=== PATIENT | female | born 1950 | race African-American/Black ===

== ENCOUNTER 2021-12-15 13:25 | Emergency (ER) | payer MEDICARE ==
[2021-12-15 13:44] VITALS: TEMP 98.9
[2021-12-15 14:13] LABS: Basophils % (A) 1 %; Eosinophils # (A) 0.2 k/uL (0-0.7); Eosinophils % (A) 4 %; HCT 43.6 % (34.0-46.0); HGB 14.1 gm/dL (11.4-16.0); Lymphocytes # (A) 1.5 k/uL (1.0-4.8); Lymphocytes % (A) 33 %; MCH 29.7 pg (25.0-35.0); MCHC 32.4 g/dL (31.0-37.0); MCV 91.7 fL (80.0-100.0); Mean Platelet Volume 7.5; Monocytes # (A) 0.2 k/uL (0-1.0); Monocytes % (A) 5 %; Neutrophils # (A) 2.5 k/uL (1.3-7.7); Neutrophils % (A) 55 %; Platelet Count 263 k/uL (150-450); RBC 4.76 m/uL (3.80-5.40); RDW 14.2 % (11.5-15.5); WBC 4.6 k/uL (3.8-10.6)
[2021-12-15 14:31] LABS: ALT 17 U/L (4-34); AST 31 U/L (14-36); African American GFR (CKD) >90 (>60 ml/min/1.73 sqM); Albumin 4.3 g/dL (3.5-5.0); Alkaline Phosphatase 76 U/L (38-126); Anion Gap 11 mmol/L; Blood Urea Nitrogen 11 mg/dL (7-17); Calcium 9.5 mg/dL (8.4-10.2); Carbon Dioxide 23 mmol/L (22-30); Chloride 105 mmol/L (98-107); Glucose 86 mg/dL (74-99); Non-African American GFR(CKD) >90 (>60 ml/min/1.73 sqM); Potassium 4.4 mmol/L (3.5-5.1); Sodium 139 mmol/L (137-145); Total Bilirubin 0.6 mg/dL (0.2-1.3); Total Protein 7.7 g/dL (6.3-8.2)
[2021-12-15 14:40] LABS: Partial Thromboplastin Time 22.7 sec (22.0-30.0); Prothrombin Time 10.6 sec (9.0-12.0)
[2021-12-15] MEDS ORDERED: MECLIZINE 12.5 MG TAB PO STA (19:07)
--- NOTE | 2021-12-15 19:29 | CT ---
EXAMINATION TYPE: CT brain wo con CT DLP: 1139.4 mGycm, Automated exposure control for dose reduction was used. DATE OF EXAM: 12/15/2021 7:22 PM COMPARISON: None. CLINICAL INDICATION:Female, 71 years old with history of dizzy, forgetfulness, dizziness TECHNIQUE: Brain: Axial CT images of the brain were obtained with coronal and sagittal reformats created and rev iewed. Contrast used: None. Oral contrast used: None. FINDINGS: Brain: Extra-axial spaces: No abnormal extra-axial fluid collections. Ventricular system: Within normal limits Cerebral parenchyma: No acute intraparenchymal hemorrhage or mass effect. The waterman-white junction is well differentiated. Cerebellum: Unremarkable. Mass effect: No evidence of midline shift. Intracranial vasculature: Atherosclerotic calcifications of the intracranial vessels. Soft tissues: Normal. Calvarium/osseous structures: No depressed skull fracture. Paranasal sinuses and mastoid air cells: Mild scattered paranasal sinus disease. Visualized orbits: Orbital contents are intact. IMPRESSION: No acute intracranial process.
[2021-12-15 20:12] VITALS: BP 120/69; PULSE 68; RESP 16
--- NOTE | 2021-12-15 21:23 | ED ---
General Adult HPI - General Chief complaint: Dizziness Stated complaint: dizzy Time Seen by Provider: 12/15/21 18:55 Source: patient Mode of arrival: ambulatory Limitations: no limitations - History of Present Illness Initial comments: 71-year-old female with no reported past history presents emergency room and complaining of dizziness. States it's been going on for the past 3-4 days. Patient has a sensation that the room is spinning when she stands up. No history of vertigo. Denies any head trauma. No headaches or visual changes. Denies any neck pain. No numbness, tingling or weakness in his extremities. Denies any fevers. No history of stroke. No vomiting. Denies any chest pain or shortness of breath. No lightheadedness. No other alleviating, precipitating or modifying factors - Related Data Previous Rx's Medication Instructions Recorded Carbamide Peroxide [Debrox Otic] 5 drops LEFT EAR BID #15 ml 12/15/21 Meclizine [Antivert] 25 mg PO TID #15 tab 12/15/21 Allergies Allergy/AdvReac Type Severity Reaction Status Date / Time aspirin Allergy Unknown Verified 12/15/21 19:12 Review of Systems ROS Statement: Those systems with pertinent positive or pertinent negative responses have been documented in the HPI. ROS Other: All systems not noted in ROS Statement are negative. Past Medical History Past Medical History: No Reported History History of Any Multi-Drug Resistant Organisms: None Reported Additional Past Surgical History / Comment(s): Gastric Bypass Past Psychological History: No Psychological Hx Reported Smoking Status: Never smoker Past Alcohol Use History: None Reported Past Drug Use History: None Reported General Exam Limitations: no limitations General appearance: alert, in no apparent distress Head exam: Present: atraumatic, normocephalic, normal inspection Eye exam: Present: normal appearance, PERRL, EOMI. Absent: scleral icterus, conjunctival injection, periorbital swelling ENT exam: Present: mucous membranes moist, other (left ear canal with impacted cerumen) Neck exam: Present: normal inspection. Absent: tenderness, meningismus, lymphadenopathy Respiratory exam: Present: normal lung sounds bilaterally. Absent: respiratory distress, wheezes, rales, rhonchi, stridor Cardiovascular Exam: Present: regular rate, normal rhythm, normal heart sounds. Absent: systolic murmur, diastolic murmur, rubs, gallop, clicks GI/Abdominal exam: Present: soft, normal bowel sounds. Absent: distended, tenderness, guarding, rebound, rigid Extremities exam: Present: normal inspection, full ROM, normal capillary refill. Absent: tenderness, pedal edema, joint swelling, calf tenderness Back exam: Present: normal inspection Neurological exam: Present: alert, oriented X3, CN II-XII intact Psychiatric exam: Present: normal affect, normal mood Skin exam: Present: warm, dry, intact, normal color. Absent: rash Course Vital Signs 12/15/21 12/15/21 12/15/21 13:40 19:11 20:10 Temperature 98.9 F Pulse Rate 78 68 Pulse Rate [ 74 Left Sitting] Pulse Rate [ 65 Left Standing] Pulse Rate [ 66 Left Supine] Respiratory 20 16 Rate Blood Pressure 114/79 120/69 Blood Pressure 130/78 [Left Arm Sitting] Blood Pressure 121/76 [Left Arm Standing] Blood Pressure 118/67 [Left Arm Supine] O2 Sat by Pulse 96 98 Oximetry EKG Findings - EKG Comments: EKG Findings:: EKG demonstrates sinus rhythm with a rate of 70. CT interval 188. Distress 90. QTC of 379. No acute ST segment elevations or depressions Medical Decision Making - Medical Decision Making Upon arrival patient was placed into room 10. Thorough history and physical exam was performed. IV access established laboratory studies were conducted. Orthostatics was performed and are negative. CT of the brain is performed which demonstrates no acute process. Patient was given meclizine with improvement in her dizziness. Did discuss diagnosis, differential and treatment options. Patient will be discharged home on meclizine. Injected felt a primary care doctor to 4 days and return for any new or worsening symptoms. Patient discharged home in stable condition - Lab Data Result diagrams: 12/15/21 14:00 12/15/21 14:00 Lab Results 12/15/21 12/15/21 12/15/21 Range/Units 14:00 14:00 14:00 WBC 4.6 (3.8-10.6) k/uL RBC 4.76 (3.80-5.40) m/uL Hgb 14.1 (11.4-16.0) gm/dL Hct 43.6 (34.0-46.0) % MCV 91.7 (80.0-100.0) fL MCH 29.7 (25.0-35.0) pg MCHC 32.4 (31.0-37.0) g/dL RDW 14.2 (11.5-15.5) % Plt Count 263 (150-450) k/uL MPV 7.5 Neutrophils % 55 % Lymphocytes % 33 % Monocytes % 5 % Eosinophils % 4 % Basophils % 1 % Neutrophils # 2.5 (1.3-7.7) k/uL Lymphocytes # 1.5 (1.0-4.8) k/uL Monocytes # 0.2 (0-1.0) k/uL Eosinophils # 0.2 (0-0.7) k/uL Basophils # 0.0 (0-0.2) k/uL PT 10.6 (9.0-12.0) sec INR 1.0 (<1.2) APTT 22.7 (22.0-30.0) sec Sodium 139 (137-145) mmol/L Potassium 4.4 (3.5-5.1) mmol/L Chloride 105 (98-107) mmol/L Carbon Dioxide 23 (22-30) mmol/L Anion Gap 11 mmol/L BUN 11 (7-17) mg/dL Creatinine 0.57 (0.52-1.04) mg/dL Est GFR (CKD-EPI)AfAm >90 (>60 ml/min/1.73 sqM) Est GFR (CKD-EPI)NonAf >90 (>60 ml/min/1.73 sqM) Glucose 86 (74-99) mg/dL Calcium 9.5 (8.4-10.2) mg/dL Total Bilirubin 0.6 (0.2-1.3) mg/dL AST 31 (14-36) U/L ALT 17 (4-34) U/L Alkaline Phosphatase 76 (38-126) U/L Troponin I (0.000-0.034) ng/mL Total Protein 7.7 (6.3-8.2) g/dL Albumin 4.3 (3.5-5.0) g/dL 12/15/21 Range/Units 14:00 WBC (3.8-10.6) k/uL RBC (3.80-5.40) m/uL Hgb (11.4-16.0) gm/dL Hct (34.0-46.0) % MCV (80.0-100.0) fL MCH (25.0-35.0) pg MCHC (31.0-37.0) g/dL RDW (11.5-15.5) % Plt Count (150-450) k/uL MPV Neutrophils % % Lymphocytes % % Monocytes % % Eosinophils % % Basophils % % Neutrophils # (1.3-7.7) k/uL Lymphocytes # (1.0-4.8) k/uL Monocytes # (0-1.0) k/uL Eosinophils # (0-0.7) k/uL Basophils # (0-0.2) k/uL PT (9.0-12.0) sec INR (<1.2) APTT (22.0-30.0) sec Sodium (137-145) mmol/L Potassium (3.5-5.1) mmol/L Chloride (98-107) mmol/L Carbon Dioxide (22-30) mmol/L Anion Gap mmol/L BUN (7-17) mg/dL Creatinine (0.52-1.04) mg/dL Est GFR (CKD-EPI)AfAm (>60 ml/min/1.73 sqM) Est GFR (CKD-EPI)NonAf (>60 ml/min/1.73 sqM) Glucose (74-99) mg/dL Calcium (8.4-10.2) mg/dL Total Bilirubin (0.2-1.3) mg/dL AST (14-36) U/L ALT (4-34) U/L Alkaline Phosphatase (38-126) U/L Troponin I <0.012 (0.000-0.034) ng/mL Total Protein (6.3-8.2) g/dL Albumin (3.5-5.0) g/dL Disposition Clinical Impression: Vertigo Disposition: HOME SELF-CARE Condition: Stable Instructions (If sedation given, give patient instructions): Dizziness (ED) Additional Instructions: Please follow-up with primary care doctor in 2-4 days and return for any new or worsening symptoms Prescriptions: Meclizine [Antivert] 25 mg PO TID #15 tab Carbamide Peroxide [Debrox Otic] 5 drops LEFT EAR BID #15 ml Is patient prescribed a controlled substance at d/c from ED?: No Referrals: Abel Jarrell MD [Primary Care Provider] - 1-2 days Time of Disposition: 21:22
== END 2021-12-15 21:30 | disposition home or self-care (01) ==
LOC: EC 13:25
DX: R42 Dizziness and giddiness (principal); Z88.6 Allergy status to analgesic agent
CPT/HCPCS: 36415; 70450; 80053; 84484; 85025; 85610; 85730; 93005; 99284

== ENCOUNTER 2022-05-21 23:07 | Emergency (ER) | payer MEDICARE ==
[2022-05-21] MEDS ORDERED: PANTOPRAZOLE 40 MG/10 ML VIAL IVP STA (23:09)
[2022-05-21] MEDS ORDERED: SODIUM CHLORIDE 0.9% 1,000 ML IV STA ×2 (23:09)
[2022-05-21] MEDS ORDERED: PROCHLORPERAZINE INJ 10 MG/2 ML VIAL IVP STA (23:10)
--- NOTE | 2022-05-21 23:11 | ED ---
Nausea/Vomiting/Diarrhea HPI - General Stated complaint: vomiting Time Seen by Provider: 05/21/22 23:09 Source: RN notes reviewed, old records reviewed Mode of arrival: EMS Limitations: no limitations - History of Present Illness Initial comments: This is a 71-year-old female presents today to the emergency department for evaluation. Patient coming in for intractable nausea vomiting and diarrhea tonight some abdominal bloating and cramping. The symptoms all began after lizbeth ent ate some bad [place] today. No one else a fistula. He shouldn't has been feeling fine all week fine all day today trying to bed after eating this she became very upset stomach had a couple episodes of vomiting. No headache chest pain shortness with abdominal pain no other complaints to the emergency department MD complaint: nausea, vomiting -: hour(s) Description of Vomiting: food contents, watery, bilious Associated Abdominal Pain: Yes Location: diffuse Radiation: none Severity: moderate Severity scale (1-10): 6 Quality: cramping, aching Consistency: intermittent Improves with: none Worsens with: none Context: other (0) Associated Symptoms: myalgias, loss of appetite, nausea/vomiting, weakness - Related Data Previous Rx's Medication Instructions Recorded Carbamide Peroxide [Debrox Otic] 5 drops LEFT EAR BID #15 ml 12/15/21 Meclizine [Antivert] 25 mg PO TID #15 tab 12/15/21 Allergies Allergy/AdvReac Type Severity Reaction Status Date / Time aspirin Allergy Unknown Verified 05/21/22 23:14 Review of Systems ROS Statement: Those systems with pertinent positive or pertinent negative responses have been documented in the HPI. ROS Other: All systems not noted in ROS Statement are negative. Past Medical History Past Medical History: No Reported History History of Any Multi-Drug Resistant Organisms: None Reported Additional Past Surgical History / Comment(s): Gastric Bypass Past Psychological History: No Psychological Hx Reported Smoking Status: Never smoker Past Alcohol Use History: None Reported Past Drug Use History: None Reported General Exam General appearance: alert, in no apparent distress Head exam: Present: atraumatic, normocephalic, normal inspection Eye exam: Present: normal appearance, PERRL, EOMI. Absent: scleral icterus, conjunctival injection, periorbital swelling ENT exam: Present: normal exam, mucous membranes moist Neck exam: Present: normal inspection. Absent: tenderness, meningismus, lymphadenopathy Respiratory exam: Present: normal lung sounds bilaterally. Absent: respiratory distress, wheezes, rales, rhonchi, stridor Cardiovascular Exam: Present: regular rate, normal rhythm, normal heart sounds. Absent: systolic murmur, diastolic murmur, rubs, gallop, clicks GI/Abdominal exam: Present: soft, normal bowel sounds. Absent: distended, tenderness, guarding, rebound, rigid Extremities exam: Present: normal inspection, full ROM, normal capillary refill. Absent: tenderness, pedal edema, joint swelling, calf tenderness Back exam: Present: normal inspection Neurological exam: Present: alert, oriented X3, CN II-XII intact Psychiatric exam: Present: normal affect, normal mood Skin exam: Present: warm, dry, intact, normal color. Absent: rash Course Vital Signs 05/21/22 05/22/22 23:08 00:50 Temperature 97.8 F Pulse Rate 72 68 Respiratory 14 16 Rate Blood Pressure 151/87 133/75 O2 Sat by Pulse 99 96 Oximetry - Reevaluation(s) Reevaluation #1: 05/21/22 23:11 Medical record is reviewed Reevaluation #2: 05/22/22 01:50 Patient symptoms are dramatically improved here in the ER Reevaluation #3: 05/22/22 01:50 Patient informed of results and questions answered Reevaluation #4: 05/22/22 01:50 Differential Abdominal Pain Women: Appendicitis, Cholecystitis, diverticulosis, ischemic bowel, pancreatitis, hepatitis, UTI, gastroenteritis, AAA, incarcerated hernia, bowel obstruction, constipation, inflammatory bowel, hepatitis, peptic ulcer disease, splenic infarction, perforated viscus, vulvitis, ovarian torsion, PID, kidney stone, placenta abruption, this is not meant to be an all-inclusive list Reevaluation #5: 05/21/22 23:11 Was pt. sent in by a medical professional or institution? @ -no Did you speak to anyone other than the patient for history? @ -tigre Did you review nursing and triage notes? @ gree] Were old charts reviewed? @ -no Differential Diagnosis? @ -prior EKG interpreted by me (3pts min.)? @ -[none] X-rays interpreted by me (1pt min.)? @ -[none] CT interpreted by me (1pt min.)? @ -[none] U/S interpreted by me (1pt. min.)? @ -[none] What testing was considered but not performed? (CT, X-rays, U/S, labs)? Why? @ no What meds were considered but not given? Why? @ -no Did you discuss the management of the patient with other professionals? @ -no Did you reconcile home meds? @ -[none] Was smoking cessation discussed for >3mins.? @ -[none] Was critical care preformed (if so, how long)? @ -[none] Were there social determinants of health that impacted care today? How? (Homelessness, low income, unemployed, alcoholism, drug addiction, transportation, low edu. Level, literacy, decrease access to med. care, snf, rehab)? @ -no Was there de-escalation of care discussed even if they declined? (Discuss DNR or withdrawal of care, Hospice)? @ -no What co-morbidities impacted this encounter? (DM, HTN, Smoking, COPD, CAD, Cancer, CVA, Hep., AIDS, mental health diagnosis, sleep apnea, morbid obesity)? @ -nod Was patient admitted / discharged? @ -dc Undiagnosed new problem with uncertain prognosis? @ -[none] Drug Therapy requiring intensive monitoring for toxicity (Heparin, Nitro, Insulin, Cardizem)? @ -[none] Were any procedures done? @ -[none] Diagnosis/symptom? @ -[default] Acute, or Chronic, or Acute on Chronic? @ -[default] Uncomplicated (without systemic symptoms) or Complicated (systemic symptoms)? @ -[default] Side effects of treatment? @ -[none] Exacerbation, Progression, or Severe Exacerbation] @ -[no] Poses a threat to life or bodily function? @ -[no] 05/22/22 01:50 Medical Decision Making - Lab Data Result diagrams: 05/21/22 23:29 05/21/22 23:29 Lab Results 05/21/22 05/21/22 05/21/22 Range/Units 23:29 23:29 23:29 WBC 6.7 (3.8-10.6) k/uL RBC 4.43 (3.80-5.40) m/uL Hgb 13.0 (11.4-16.0) gm/dL Hct 39.9 (34.0-46.0) % MCV 89.9 (80.0-100.0) fL MCH 29.3 (25.0-35.0) pg MCHC 32.6 (31.0-37.0) g/dL RDW 13.0 (11.5-15.5) % Plt Count 228 (150-450) k/uL MPV 7.7 Neutrophils % 76 % Lymphocytes % 16 % Monocytes % 3 % Eosinophils % 3 % Basophils % 1 % Neutrophils # 5.1 (1.3-7.7) k/uL Lymphocytes # 1.1 (1.0-4.8) k/uL Monocytes # 0.2 (0-1.0) k/uL Eosinophils # 0.2 (0-0.7) k/uL Basophils # 0.0 (0-0.2) k/uL Sodium 142 (137-145) mmol/L Potassium 4.5 (3.5-5.1) mmol/L Chloride 113 H (98-107) mmol/L Carbon Dioxide 23 (22-30) mmol/L Anion Gap 6 mmol/L BUN 12 (7-17) mg/dL Creatinine 0.58 (0.52-1.04) mg/dL Est GFR (CKD-EPI)AfAm >90 (>60 ml/min/1.73 sqM) Est GFR (CKD-EPI)NonAf >90 (>60 ml/min/1.73 sqM) Glucose 114 H (74-99) mg/dL Plasma Lactic Acid Александр 1.4 (0.7-2.0) mmol/L Calcium 9.0 (8.4-10.2) mg/dL Total Bilirubin 0.5 (0.2-1.3) mg/dL AST 28 (14-36) U/L ALT 16 (4-34) U/L Alkaline Phosphatase 93 (38-126) U/L Troponin I (0.000-0.034) ng/mL Total Protein 7.0 (6.3-8.2) g/dL Albumin 3.8 (3.5-5.0) g/dL Amylase 93 (30-110) U/L Lipase 45 (23-300) U/L Urine Color Urine Appearance (Clear) Urine pH (5.0-8.0) Ur Specific [place] (1.001-1.035) Urine Protein (Negative) Urine Glucose (UA) (Negative) Urine Ketones (Negative) Urine Blood (Negative) Urine Nitrite (Negative) Urine Bilirubin (Negative) Urine Urobilinogen (<2.0) mg/dL Ur Leukocyte Esterase (Negative) Urine RBC (0-5) /hpf Urine WBC (0-5) /hpf Ur Squamous Epith Cells (0-4) /hpf Urine Mucus (None) /hpf 05/21/22 05/22/22 Range/Units 23:29 01:32 WBC (3.8-10.6) k/uL RBC (3.80-5.40) m/uL Hgb (11.4-16.0) gm/dL Hct (34.0-46.0) % MCV (80.0-100.0) fL MCH (25.0-35.0) pg MCHC (31.0-37.0) g/dL RDW (11.5-15.5) % Plt Count (150-450) k/uL MPV Neutrophils % % Lymphocytes % % Monocytes % % Eosinophils % % Basophils % % Neutrophils # (1.3-7.7) k/uL Lymphocytes # (1.0-4.8) k/uL Monocytes # (0-1.0) k/uL Eosinophils # (0-0.7) k/uL Basophils # (0-0.2) k/uL Sodium (137-145) mmol/L Potassium (3.5-5.1) mmol/L Chloride (98-107) mmol/L Carbon Dioxide (22-30) mmol/L Anion Gap mmol/L BUN (7-17) mg/dL Creatinine (0.52-1.04) mg/dL Est GFR (CKD-EPI)AfAm (>60 ml/min/1.73 sqM) Est GFR (CKD-EPI)NonAf (>60 ml/min/1.73 sqM) Glucose (74-99) mg/dL Plasma Lactic Acid Александр (0.7-2.0) mmol/L Calcium (8.4-10.2) mg/dL Total Bilirubin (0.2-1.3) mg/dL AST (14-36) U/L ALT (4-34) U/L Alkaline Phosphatase (38-126) U/L Troponin I <0.012 (0.000-0.034) ng/mL Total Protein (6.3-8.2) g/dL Albumin (3.5-5.0) g/dL Amylase (30-110) U/L Lipase (23-300) U/L Urine Color Yellow Urine Appearance Clear (Clear) Urine pH 6.0 (5.0-8.0) Ur Specific [place] 1.022 (1.001-1.035) Urine Protein Trace H (Negative) Urine Glucose (UA) Negative (Negative) Urine Ketones Negative (Negative) Urine Blood Negative (Negative) Urine Nitrite Negative (Negative) Urine Bilirubin Negative (Negative) Urine Urobilinogen 2.0 (<2.0) mg/dL Ur Leukocyte Esterase Small H (Negative) Urine RBC <1 (0-5) /hpf Urine WBC 2 (0-5) /hpf Ur Squamous Epith Cells 3 (0-4) /hpf Urine Mucus Occasional H (None) /hpf Disposition Clinical Impression: Dehydration, Food poisoning, Gastroenteritis Disposition: HOME SELF-CARE Condition: Good Instructions (If sedation given, give patient instructions): Acute Nausea and Vomiting (ED), Acute Diarrhea (ED) Is patient prescribed a controlled substance at d/c from ED?: No Referrals: Abel Jarrell MD [Primary Care Provider] - 1-2 days Time of Disposition: 01:50
[2022-05-21 23:13] VITALS: TEMP 97.8
[2022-05-21 23:40] LABS: Basophils % (A) 1 %; Eosinophils # (A) 0.2 k/uL (0-0.7); Eosinophils % (A) 3 %; HCT 39.9 % (34.0-46.0); Lymphocytes # (A) 1.1 k/uL (1.0-4.8); Lymphocytes % (A) 16 %; MCH 29.3 pg (25.0-35.0); MCHC 32.6 g/dL (31.0-37.0); MCV 89.9 fL (80.0-100.0); Mean Platelet Volume 7.7; Monocytes # (A) 0.2 k/uL (0-1.0); Monocytes % (A) 3 %; Neutrophils # (A) 5.1 k/uL (1.3-7.7); Neutrophils % (A) 76 %; Platelet Count 228 k/uL (150-450); RBC 4.43 m/uL (3.80-5.40); WBC 6.7 k/uL (3.8-10.6)
[2022-05-21 23:59] LABS: ALT 16 U/L (4-34); AST 28 U/L (14-36); African American GFR (CKD) >90 (>60 ml/min/1.73 sqM); Albumin 3.8 g/dL (3.5-5.0); Alkaline Phosphatase 93 U/L (38-126); Amylase 93 U/L (30-110); Anion Gap 6 mmol/L; Blood Urea Nitrogen 12 mg/dL (7-17); Carbon Dioxide 23 mmol/L (22-30); Chloride 113 mmol/L (98-107); Glucose 114 mg/dL (74-99); Lipase 45 U/L (23-300); Non-African American GFR(CKD) >90 (>60 ml/min/1.73 sqM); Potassium 4.5 mmol/L (3.5-5.1); Sodium 142 mmol/L (137-145); Total Bilirubin 0.5 mg/dL (0.2-1.3)
[2022-05-22 00:53] VITALS: BP 133/75; PULSE 68; RESP 16
[2022-05-22 01:44] LABS: Appearance,Urine Clear (Clear); Bilirubin,Urine Negative (Negative); Blood,Urine Negative (Negative); Color,Urine Yellow; Glucose,Urine (UA) Negative (Negative); Ketones,Urine Negative (Negative); Leukocyte Esterase,Urine Small (Negative); Mucus,Urine Occasional /hpf; Nitrite,Urine Negative (Negative); Protein,Urine Trace (Negative); RBC,Urine <1 /hpf (0-5); Specific Gravity,Urine 1.022 (1.001-1.035); Squamous Epithelial Cell,Urine 3 /hpf (0-4); WBC,Urine 2 /hpf (0-5)
[2022-05-22] MEDS ORDERED: ONDANSETRON 4 MG ODT STARTER PACK 2 TAB BTL PO STA (01:52)
== END 2022-05-22 01:59 | disposition home or self-care (01) ==
LOC: EC 23:07
DX: E86.0 Dehydration (principal); A05.9 Bacterial foodborne intoxication, unspecified; K52.9 Noninfective gastroenteritis and colitis, unspecified; Z88.6 Allergy status to analgesic agent
CPT/HCPCS: 36415; 80053; 82150; 83605; 83690; 84484; 85025; 81001; 99284; 96374; 96375; 96361 ×2; J0780; S0119; C9113

== ENCOUNTER → 2022-12-21 | Outpatient (CLI) | payer MEDICARE ==
[2022-12-21 14:59] LABS: Basophils # (A) 0.04 X 10*3/uL (0.00-0.10); Basophils % (A) 0.8 %; Eosinophils # (A) 0.21 X 10*3/uL (0.04-0.35); HCT 39.8 % (37.2-46.3); HGB 12.4 d/dL (12.0-15.0); Lymphocytes # (A) 1.67 X 10*3/uL (0.90-5.00); Lymphocytes % (A) 31.5 %; MCHC 31.2 d/dL (32.0-37.0); MCV 89.8 FL (80.0-97.0); Mean Platelet Volume 10.1 FL (9.5-12.2); Monocytes # (A) 0.42 X 10*3/uL (0.20-1.00); Monocytes % (A) 7.9 %; NRBC Per 100 WBC 0 X 10*3/uL (0.00-0.01); Neutrophils # (A) 2.94 X 10*3/uL (1.80-7.70); Neutrophils % (A) 55.4 %; Platelet Count 279 X 10*3/uL (140-440); RBC 4.43 X 10*6/uL (4.10-5.20); RDW 13.8 % (11.5-14.5)
[2022-12-21 16:16] LABS: Chol/HDL Ratio 2.67 Ratio; LDL Cholesterol,Calculated 97.1 mg/dL (0.0-131.0); VLDL Calculation 17.96 mg/dL (5.00-40.00)
[2022-12-21 16:17] LABS: ALT 12 U/L (8-44); AST 23 U/L (13-35); Albumin 4.1 d/dL (3.8-4.9); Albumin/Globulin Ratio 1.52 Ratio (1.60-3.17); Alkaline Phosphatase 100 U/L (41-126); Blood Urea Nitrogen 6.3 mg/dL (9.0-27.0); Calcium 9.5 mg/dL (8.7-10.3); Carbon Dioxide 24.6 mmol/L (21.6-31.8); Chloride 107 mmol/L (96-109); Globulin 2.7 d/dL (1.6-3.3); Glucose 86 mg/dL (70-110); Potassium 4.3 mmol/L (3.5-5.5); Sodium 142 mmol/L (135-145); Total Bilirubin 0.5 mg/dL (0.3-1.2); Total Protein 6.8 d/dL (6.2-8.2)
[2022-12-21 20:49] LABS: INR 0.95 sec (0.93-1.11); Prothrombin Time 10.8 sec (9.9-11.9)
== END | disposition home or self-care (01) ==
LOC: LABWHC1 10:17
PROVIDERS: ATTEND Family Medicine
DX: Z01.812 Encounter for preprocedural laboratory examination (principal); Z13.1 Encounter for screening for diabetes mellitus; I10 Essential (primary) hypertension
CPT/HCPCS: 36415; 80053; 80061; 83036; 84443; 85025; 85610

== ENCOUNTER → 2023-01-06 | Outpatient (CLI) | payer MEDICARE | END | disposition home or self-care (01) | LOC: LABPAT 11:58 | PROVIDERS: ATTEND Orthopaedic Surgery | DX: Z01.812 Encounter for preprocedural laboratory examination (principal) | CPT/HCPCS: 87070 ==

== ENCOUNTER 2023-01-17 07:18 | Day surgery (SDC) | payer MEDICARE ==
[~2023-01-17 07:18] MED LIST: ACETAMINOPHEN TAB 500 MG TAB PO PRN; GABAPENTIN 300 MG CAP PO PRN; MELOXICAM 7.5 MG TAB PO PRN; TRANEXAMIC 1,000 MG/100ML-NACL 1,000 MG in SALINE 1 100ML.BAG IVPB PRN
[2023-01-17] MEDS ORDERED: LACTATED RINGERS 1,000 ML IV SCH (07:34)
[2023-01-17] MEDS ORDERED: ONDANSETRON 4 MG/2 ML VIAL ONE (08:03)
[2023-01-17] MEDS ORDERED: DEXAMETHASONE SOD PHOSPHATE 4 MG/ML 1 ML VIAL IVP ONE (08:07)
[2023-01-17] MEDS ORDERED: MIDAZOLAM 2 MG/2 ML VIAL IVP ONE (08:15)
[2023-01-17] MEDS ORDERED: fentaNYL (PF) 50 MCG/ML 2 ML AMP IVP ONE (08:18)
[2023-01-17] MEDS ORDERED: NALOXONE 0.4 MG/ML 1 ML VIAL IV PRN (08:32)
[2023-01-17] MEDS ORDERED: HYDROmorphone 0.5 MG/0.5 ML SYRINGE IVP PRN ×3 (08:32)
[2023-01-17] MEDS ORDERED: ONDANSETRON 4 MG/2 ML VIAL IVP PRN (08:32)
[2023-01-17] MEDS ORDERED: MAGNESIUM HYDROXIDE 2,400 MG/30 ML CUP PO PRN (08:32)
[2023-01-17] MEDS ORDERED: HYDROcodone/APAP 7.5-325MG 1 EACH TAB PO PRN (08:34)
[2023-01-17] MEDS ORDERED: PROPOFOL 10 MG/ML 20 ML VIAL IV ONE (08:49)
[2023-01-17] MEDS ORDERED: fentaNYL (PF) 50 MCG/ML 2 ML AMP ONE (08:49)
[2023-01-17] MEDS ORDERED: ROPIVACAINE 5 MG/ML 30 ML VIAL ONE (08:49)
[2023-01-17] MEDS ORDERED: MIDAZOLAM 2 MG/2 ML VIAL ONE (08:49)
[2023-01-17] MEDS ORDERED: TRANEXAMIC 1,000 MG/100ML-NACL PREMIX BAG ONE (08:49)
[2023-01-17] MEDS ORDERED: LIDOCAINE 2% INJ 20 MG/ML (2 ML VIAL) ONE (08:49)
[2023-01-17] MEDS ORDERED: HYDROmorphone (PF) 1 MG/ML ONE (08:49)
[2023-01-17] MEDS ORDERED: ceFAZolin 1,000 MG in SODIUM CHLORIDE 0.9% 1,000 ML IRRIGATION ONE (08:49)
--- NOTE | 2023-01-17 09:12 | P.ANPRN ---
Procedure Note - Anesthesia - Nerve Block Performed Left Adductor Canal Infusion Date of Procedure: 01/17/23 Procedure Start Time: 08:15 Procedure Stop Time: 08:31 Location of Patient: PreOp Indication: Acute Post-Operative Pain, Analgesia, Requested by Surgeon Specifically requested for management of pain by : Geovanni Feldman Sedation Type: Sedate with meaningful contact maintained Preparation: Sterile Prep Position: Supine Catheter Depth at Skin (cm): 8 Catheter: Indwelling Needle Types: Pajunk Needle Gauge: 18 Ultrasound used to visualize needle placement: Yes Ultrasound used to observe medication spread: Yes Injectate: 0.5% Ropivacaine (see comment for volume) (20 mL)
--- NOTE | 2023-01-17 09:14 | P.ANPRN ---
Procedure Note - Anesthesia - Nerve Block Performed Left iPack Single Time Out Performed: Yes Date of Procedure: 01/17/23 Procedure Start Time: 08:15 Procedure Stop Time: 08:31 Location of Patient: PreOp Indication: Acute Post-Operative Pain, Requested by Surgeon Specifically requested for management of pain by : Geovanni Feldman Sedation Type: Sedate with meaningful contact maintained Preparation: Sterile Prep Position: Supine Catheter: None Needle Types: Pajunk Needle Gauge: 20 Ultrasound used to visualize needle placement: Yes Ultrasound used to observe medication spread: Yes Injectate: 0.5% Ropivacaine (see comment for volume) (20 mL)
[2023-01-17] MEDS ORDERED: LACTATED RINGERS 1,000 ML IV ONE (10:02)
--- NOTE | 2023-01-17 10:15 | P.OP ---
Date of Procedure: 01/17/23 Preoperative Diagnosis: Severe osteoarthritis left knee Postoperative Diagnosis: Severe osteoarthritis left knee Procedure(s) Performed: Left total knee arthroplasty Implants: [employer] Journey II CR Oxinium cruciate retaining femoral component size 7, left [employer] Journey nonporous tibial baseplate size 5, left [employer] Journey II, XLPE Deep Dished articular insert, size 9 mm, Size 5- 6, left [employer] Journey Mónica II resurfacing patellar component, oval, 32 mm All components were cemented using Palacos R bone cement The articulation is Oxinium on polyethylene Anesthesia: BRIAN Surgeon: Geovanni Feldman Bryologist #1: Rosalia Velasquez Estimated Blood Loss (ml): 40 Pathology: none sent Condition: stable Disposition: PACU Indications for Procedure: The patient's knee is end-stage, and conservative management has failed. The operation of knee replacement has been discussed at length in the office, as well as potential risks and complications. These are inclusive of, but not limited to: Infection, bleeding, scarring, discomfort, stiffness, blood vessel and nerve damage, need for further surgery, failure to relieve symptoms, persistence, recurrence, or worsening of problems, loosening, dislocation, wear, blood clot, pulmonary embolism, , gait dysfunction, stiffness, and other risks as discussed in the office. Patient elects to proceed and the consent form has been signed. Operative Findings: The operative findings are consistent with severe osteoarthritis of the left knee Description of Procedure: The patient was seen in the preoperative area, the consent was reviewed and the operative site was marked with a skin marker. The patient verified the procedure and the operative site. An adductor canal pain catheter and an iPACK block were placed by anesthesia in the preoperative area. The patient was then brought to the operating room and positioned on the operating room table in the supine position. Preoperative antibiotics and a gram of tranexamic acid were given intravenously. A spinal anesthetic was attempted, but was unsuccessful. A general anesthetic was then administered by the anesthesia department. Care was taken to make sure that all pressure points were adequately padded. A tourniquet was placed on the upper thigh and the lower extremity was prepped with ChloraPrep and draped in usual sterile fashion. A universal time-out was then performed which confirmed the patient's name, surgical site, ALLERGIES, and consent. The lower extremity was then exsanguinated and tourniquet was inflated to 250 mmHg. A standard anterior midline approach to the knee was performed. The skin and subcutaneous tissue were sharply dissected down to the patellar tendon. A medial parapatellar arthrotomy was then performed. The knee was then extended, the patellar was everted, and the knee was flexed. The infra-patellar fat pad was removed in order to enhance exposure. The anterior horns of both menisci were excised, and a release was performed to the posterior medial aspect of the knee. On gross visual inspection, there was complete loss of articular cartilage in the medial and patellofemoral joint spaces. There was also significant cartilage damage in the lateral compartment. There were multiple periarticular osteophytes globally about the knee which were then removed with a Ronguer. The femoral canal was then opened with the 9.5 mm intramedullary drill. The 8 mm intramedullary lynn was then inserted into the femoral canal with the distal femoral cutting guide set for 5 of valgus. The distal femoral cutting block was then pinned in place. The intramedullary lynn was then removed, and the distal femur was then cut. The cutting block was then removed and the cut was checked for symmetry. The resected bone was then measured to confirm the appropriate distal femoral resection. Next, the sizing guide was then placed and set for 3 external rotation based off of the epicondylar axis and Detroit's line. Pins were then placed and the drill holes, and the femur was sized with the sizing stylus. The pins were then removed, and the sizing guide was then removed. The spikes of the appropriate size femoral block was then placed into the predrilled holes, and malleted into place. Two 45 mm pins were then placed into the fixation holes on the cutting block. An luis wing was then used to ensure there would be no notching with the anterior cut. The anterior condyles were cut without notching. The anterior chord cut was then performed, followed by the posterior cut, posterior chamfer cut, and the anterior chamfer cut. The collateral ligaments were protected during the entire process. The cutting block was then removed. Any remaining bone and osteo phytes were removed from the femur with a Ronguer. Attention was then directed to the tibia. The remaining ACL was removed with a Ronguer, and the tibia was then gently subluxed forward with a large bent knee retractor. Any remaining menisci were excised. The posterior lateral corner was cauterized in order to coagulate the lateral geniculate artery. The extra medullary tibial cutting guide was then placed, set for the appropriate rotation, slope, and depth of resection. The proximal tibia cutting guide was then pinned in place. Proximal tibia was then cut and sized. A curved osteotome was then used to remove any posterior osteophytes from the distal femur. The femoral trial was placed. A narrow saw blade was then used to remove the anterior intracondylar femoral bone. The CR notch trial was then placed. The tibial trial was placed with the appropriate-sized insert. The knee was able to fully extend and flex to 130 and was stable throughout all range of motion. The knee was then extended and the patella was everted. Patella was then measured, and then using an osteotomy guide, the patella was cut at the appropriate level. The patellar component was sized. The patellar drill guide was placed and the patella was drilled. The patella trial was then placed. The knee was then taken through range of motion with the patella trial and the patella tracked normally using the no thumbs technique. The patella trial was then removed. The knee was then flexed and lug holes were drilled through the femoral trial and the femoral trial was then removed. The tibial was then re- exposed, and the tibial broach guide was then pinned in place after it was set for the appropriate rotation to allow for the most coverage without overhang. The tibia was then reamed and broached. The femoral canal was plugged with autologous bone. The cut surfaces of bone were then irrigated with pulsatile lavage. The knee was also irrigated with Irrisept solution. The components were then opened, the cement was mixed. Cement was placed on the backside of the femoral, tibial, and patellar components. Cement was then applied to the tibial surface and pressurized into the surface using finger pressurization technique. The tibial component was then applied and excess cement was removed after it was impacted securely noted to be flush with the cut surface. In similar fashion, the cement was applied to the cut femoral surface, pressurized and using finger pressurization the component was impacted in place. Excess cement was removed. The polyethylene spacer was then implanted and locked into position. Patellar component was then applied in a similar technique and the patellar clamp was used to hold patella in place while the cement hardened. The knee was held in full extension while the cement hardened. Once the cement had fully hardened, the knee was reinspected. Any other cement extrusion was removed the final range of motion testing showed range of motion from 0-130 with excellent stability, both medial and laterally and appropriate alignment of the leg. Patella tracked normally. After the cemented hardened, the tourniquet was released and hemostasis was obtained. A second gram of transexamic acid was given intravenously. The knee was again irrigated. The knee was again taken through range of motion and found to be stable throughout all range of motion of 0-130, and the patella tracked normally. The fascia was then closed with 0 Vicryl followed by #2 strata fix suture. The subcutaneous tissue was closed with 3-0 Vicryl and 3-0 strata fix. Exofin glue was used for the skin and placed with the knee in flexion. After the glue had dried, and Optafoam silver impregnated dressing was applied. A lightly compressive dressing was applied using web roll and William wrap. Patient was then transferred to the stretcher and taken to recovery room in stable condition. Sponge and needle counts were correct. The environmental emergencies assistant ELLI Carlton was required due the complexity surgery and the need for a skilled assistant casino shift manager. She assisted in positioning, draping, retraction, and closure of the wound.
[2023-01-17] MEDS ORDERED: ROPIVACAINE 1,100 MG, SODIUM CHLORIDE 0.9% 500 ML 330 ML, EMPTY PAIN BALL 1 EACH MISCELLANE PRN ×2 (11:00)
[2023-01-17] MEDS ORDERED: HYDROmorphone 0.5 MG/0.5 ML SYRINGE IVP ONE (11:08)
--- NOTE | 2023-01-17 11:26 | XR ---
EXAMINATION TYPE: XR knee limited LT DATE OF EXAM: 01/17/2023 COMPARISON: NONE TECHNIQUE: Two views submitted HISTORY: Post op FINDINGS: There is a prosthetic knee in near anatomic alignment. There is soft tissue edema and soft tissue e mphysema. IMPRESSION: 1. Postoperative change. Appears in near-anatomic alignment
[2023-01-17] MEDS: ASPIRIN 325 MG TAB PO SCH ×2 (13:20→20:04)
[2023-01-17] MEDS: SODIUM CHLORIDE 0.9% 1,000 ML IV SCH ×2 (13:20→23:33)
[2023-01-17] MEDS: HYDROcodone/APAP 7.5-325MG 1 EACH TAB PO PRN (19:56)
[2023-01-17] MEDS: SENNOSIDES-DOCUSATE SODIUM 1 EACH TAB PO SCH (20:04)
[2023-01-17] MEDS: DONEPEZIL 10 MG TAB PO SCH (20:04)
[2023-01-18] MEDS: HYDROcodone/APAP 7.5-325MG 1 EACH TAB PO PRN ×3 (04:31→17:05)
[2023-01-18] MEDS: ASPIRIN 325 MG TAB PO SCH ×2 (08:26→20:39)
--- NOTE | 2023-01-18 09:30 | P.PN ---
Subjective Progress Note Date: 01/18/23 This is a 72-year-old female who is status post left total knee arthroplasty. This is postoperative day #1 and patient is seen and evaluated at bedside with Dr. Geovanni Feldman. Patient denies any new complaints today. Objective - Vital Signs Vital signs: Vital Signs Temp 98.1 F 01/18/23 02:00 Pulse 62 01/18/23 02:00 Resp 18 01/17/23 19:40 BP 119/74 01/18/23 02:00 Pulse Ox 98 01/18/23 02:00 FiO2 Intake & Output 01/17/23 01/18/23 01/18/23 18:59 06:59 18:59 Intake Total 1451 Output Total 40 Balance 1411 Weight 100.8 kg Intake: IV 1451 Output: Estimated Blood Loss 40 Other: Voiding Method Toilet # Voids 2 1 - Exam Vital signs are stable. Patient is in no acute distress and is alert and oriented 3. Calf is soft and nontender to palpation. Dressing is clean, dry, and intact. Patient has full foot and ankle motion without pain or difficulty. Sensation intact. Neurovascular status and circulatory status are intact. Assessment and Plan (1) Osteoarthritis of left knee Current Visit: Yes Status: Acute Code(s): M17.12 - UNILATERAL PRIMARY OSTEOARTHRITIS, LEFT KNEE SNOMED Code(s): 775184950754024 (2) Status post total left knee replacement Current Visit: Yes Status: Acute Code(s): Z96.652 - PRESENCE OF LEFT ARTIFIC IAL KNEE JOINT SNOMED Code(s): 4021270756576 Plan: #1 Continue with routine postoperative care and pain control, leave dressing in place for 7 days. #2 Anticoagulation with aspirin. #3 Physical therapy and CPM today. #4 Appreciate input from internal medicine. #5 Anticipate discharge to [facility] the next 24-48 hrs.
[2023-01-18] MEDS: SODIUM CHLORIDE 0.9% 1,000 ML IV SCH (11:02)
[2023-01-18 11:05] LABS: HCT 32.1 % (37.2-46.3); HGB 10.1 d/dL (12.0-15.0); MCH 28.8 pg (27.0-32.0); MCHC 31.5 d/dL (32.0-37.0); MCV 91.5 FL (80.0-97.0); NRBC Per 100 WBC 0 X 10*3/uL (0.00-0.01); Platelet Count 235 X 10*3/uL (140-440); RBC 3.51 X 10*6/uL (4.10-5.20); RDW 14.2 % (11.5-14.5); WBC 5.43 X 10*3/uL (4.50-10.00)
[2023-01-18 11:06] LABS: Basophils # (A) 0.03 X 10*3/uL (0.00-0.10); Basophils % (A) 0.6 %; Eosinophils # (A) 0.08 X 10*3/uL (0.04-0.35); Eosinophils % (A) 1.5 %; Lymphocytes # (A) 1.56 X 10*3/uL (0.90-5.00); Lymphocytes % (A) 28.7 %; Neutrophils # (A) 3.15 X 10*3/uL (1.80-7.70)
--- NOTE | 2023-01-18 20:35 | P.CONS ---
History of Present Illness - Reason for Consult Consult date: 01/18/23 Medical management - Chief Complaint Status post left knee arthroplasty - History of Present Illness Patient is a 72-year-old female with a known history of hypertension, memory impairment, osteoarthritis, history of gastric bypass surgery and prior history of smoking quit in 2019 was admitted to the hospital for elective left total knee arthroplasty. Patient is status post surgery on 01/17/2023. Tolerated very well. Currently patient is lying in the bed. Awake alert and oriented with baseline mentation. Patient does complain of pain in the left knee which is fairly controlled with medications. Otherwise patient is afebrile. No complaints of chest pain or shortness of breath. No nausea vomiting abdominal pain or diarrhea. Laboratory data showed WBC 5.4 hemoglobin 10.1 and platelets 235. Blood pressure was elevated slightly this afternoon with SBP in 155 mmHg. Denies any headache or dizziness or lightheadedness. Review of Systems Constitutional: Patient denies any fever or chills . Generalized weakness. Abdomen: Patient denied any nausea or vomiting or abd. pain Cardiovascular: Patient denies any chest pain or short of breath no palpitations. Respiratory: patient denied any cough . no sputum production. No shortness of breath Neurologic: Patient denied any numbness or tingling headache. Musculoskeletal: Patient complains of left knee pain. No other joint swelling or deformity. Skin: Negative Complete review of systems could not be obtained from the patient except as per HPI due to underlying memory impairment. Past Medical History Past Medical History: Hypertension, Memory Impairment, Osteoarthritis (OA) Additional Past Medical History / Comment(s): vertigo, bilateral knee pain, benign colon polyps History of Any Multi-Drug Resistant Organisms: None Reported Past Surgical History: Bariatric Surgery, Section Additional Past Surgical History / Comment(s): Gastric Bypass Past Anesthesia/Blood Transfusion Reactions: No Reported Reaction Past Psychological History: No Psychological Hx Reported Additional Psychological History / Comment(s): Pt resides at [facility]. She has a walker. She states she manages her own rx. Smoking Status: Former smoker Past Alcohol Use History: None Reported, Rare Additional Past Alcohol Use History / Comment(s): Pt started smoking in 1965 and quit in 2019 Past Drug Use History: Marijuana - Past Family History Father Family Medical History: Dementia Mother Family Medical History: Coronary Artery Disease (CAD) Medications and Allergies Home Medications Medication Instructions Recorded Confirmed Type Diclofenac Sodium Gel [Voltaren 1 applic TOPICAL BID PRN 01/13/23 01/13/23 History Gel] Donepezil [Aricept] 10 mg PO HS 01/13/23 01/17/23 History Naproxen [Naprosyn] 500 mg PO BID PRN 01/13/23 01/13/23 History Aspirin 325 mg PO BID #60 tab 01/17/23 Rx HYDROcodone/APAP 7.5-325MG [[place] 1 - 2 tab PO Q6H PRN #32 tab 01/17/23 Rx 7.5-325] Sennosides [Senokot] 2 tab PO DAILY PRN #60 tablet 01/17/23 Rx Allergies Allergy/AdvReac Type Severity Reaction Status Date / Time aspirin Allergy Unknown Verified 01/17/23 07:45 Physical Exam Vitals: Vital Signs Temp Pulse Pulse Resp BP Pulse Ox 01/18/23 02:00 98.1 F 62 119/74 98 01/17/23 19:40 97.9 F 75 18 115/76 100 01/17/23 14:00 97.4 F L 67 16 125/80 100 01/17/23 13:30 61 18 116/58 99 01/17/23 13:22 97.4 F L 67 16 125/80 95 01/17/23 13:00 60 16 121/58 100 01/17/23 12:30 61 14 118/61 100 01/17/23 12:15 62 14 119/60 100 01/17/23 11:45 59 L 16 114/61 100 01/17/23 11:30 61 16 116/59 100 01/17/23 11:15 64 17 118/59 98 01/17/23 11:00 70 16 124/66 99 01/17/23 10:44 96.9 F L 78 16 128/63 93 L Intake and Output 01/17/23 01/18/23 01/18/23 22:59 06:59 14:59 Intake Total 610 Balance 610 Intake: Intake, IV Titration 610 Amount Sodium Chloride 0.9% 1, 560 000 ml @ 70 mls/hr IV . [id number] [facility] Rx#:[id number] ceFAZolin 2 gm In Sodium 50 Chloride 0.9% 50 ml @ 100 mls/hr IVPB Q8HR [facility] Rx# :[id number] Other: Voiding Method Toilet # Voids 1 1 PHYSICAL EXAMINATION: Patient is lying in the bed comfortably, no acute distress, awake alert and oriented.. HEENT: Normocephalic. Neck is supple. Pupils reactive. Nostrils clear. Oral cav ity is moist. Neck reveals no JVD, carotid bruits, or thyromegaly. CHEST EXAMINATION: Trachea is central. Symmetrical expansion. Lung salas clear to auscultation and percussion. CARDIAC: Normal S1, S2 with no gallops. No murmurs ABDOMEN: Soft. Bowel sounds present. Nontender. No organomegaly. No abdominal bruits. Extremities: reveal no edema. No clubbing or cyanosis Neurologically awake, alert, oriented x2-3 . Able to move all extremities. No gross focal neurological deficit. Skin: No rash or skin lesions. Psychiatric: Coperative. Nonsuicidal, Musculoskeletal: No joint swelling or deformity left knee surgical site intact. Minimal swelling. Results CBC & Chem 7: 01/18/23 05:37 Assessment and Plan Assessment: Status post left total knee arthroplasty. Postoperative day 1 Severe osteoarthritis of the left knee Hypertension fairly controlled. Not on any medications at home. Memory impairment Prior history of gastric bypass surgery History of smoking DVT prophylaxis. Patient is on aspirin twice daily Plan: Patient will be continued on pain management, bowel regimen and encourage incen tive spirometry. PT OT was consulted. Gentle IV hydration. Continue with home medications. We will follow closely and further recommendations based on the clinical course. Follow-up CBC and BMP tomorrow. Monitor H&H. Thank you for your consult.
[2023-01-18] MEDS: DONEPEZIL 10 MG TAB PO SCH (20:39)
[2023-01-18] MEDS: SENNOSIDES-DOCUSATE SODIUM 1 EACH TAB PO SCH (20:39)
[2023-01-19] MEDS: HYDROcodone/APAP 7.5-325MG 1 EACH TAB PO PRN ×4 (01:04→23:30)
[2023-01-19] MEDS: SODIUM CHLORIDE 0.9% 1,000 ML IV SCH ×2 (02:45→19:38)
[2023-01-19] MEDS: ASPIRIN 325 MG TAB PO SCH ×2 (08:29→20:52)
[2023-01-19 11:08] LABS: Blood Urea Nitrogen 5.3 mg/dL (9.0-27.0); Calcium 8.5 mg/dL (8.7-10.3); Chloride 108 mmol/L (96-109); Glucose 87 mg/dL (70-110); Potassium 3.7 mmol/L (3.5-5.5); Sodium 142 mmol/L (135-145)
--- NOTE | 2023-01-19 13:59 | P.PN ---
Subjective Progress Note Date: 01/19/23 This is a 72-year-old female who is status post left total knee arthroplasty. This is postoperative day #2 and patient is seen and evaluated at bedside today. Patient denies any new complaints today. Objective - Vital Signs Vital signs: Vital Signs Temp 97.7 F 01/19/23 07:11 Pulse 64 01/19/23 07:11 Resp 18 01/19/23 07:11 BP 119/67 01/19/23 07:11 Pulse Ox 98 01/19/23 07:11 FiO2 Intake & Output 01/18/23 01/19/23 01/19/23 18:59 06:59 18:59 Intake Total 610 Balance 610 Intake: Intake, IV Titration 610 Amount Sodium Chloride 0.9% 1, 560 000 ml @ 70 mls/hr IV . [id number] [facility] Rx#:[id number] ceFAZolin 2 gm In Sodium 50 Chloride 0.9% 50 ml @ 100 mls/hr IVPB Q8HR [facility] Rx# :[id number] Other: Voiding Method Toilet # Voids 4 1 2 # Bowel Movements 1 - Exam Vital signs are stable. Patient is in no acute distress and is alert and orie nted 3. Calf is soft and nontender to palpation. Dressing is clean, dry, and intact. Patient has full foot and ankle motion without pain or difficulty. Sensation intact. Neurovascular status and circulatory status are intact. - Labs CBC & Chem 7: 01/18/23 05:37 01/19/23 06:28 Labs: Abnormal Lab Results - Last 24 Hours (Table) 01/19/23 Range/Units 06:28 BUN 5.3 L (9.0-27.0) mg/dL Creatinine 0.5 L (0.6-1.5) mg/dL BUN/Creatinine Ratio 10.60 L (12.00-20.00) Ratio Calcium 8.5 L (8.7-10.3) mg/dL Assessment and Plan (1) Osteoarthritis of left knee Current Visit: Yes Status: Acute Code(s): M17.12 - UNILATERAL PRIMARY OSTEOARTHRITIS, LEFT KNEE SNOMED Code(s): 548176150632479 (2) Status post total left knee replacement Current Visit: Yes Status: Acute Code(s): Z96.652 - PRESENCE OF LEFT ARTIFICIAL KNEE JOINT SNOMED Code(s): 7349064382064 Plan: #1 Continue with routine postoperative care and pain control, leave dressing in place for 7 days. #2 Anticoagulation with aspirin. #3 Physical therapy and CPM today. #4 Appreciate input from internal medicine. #5 Anticipate discharge to [facility] the next 24-48 hrs.
--- NOTE | 2023-01-19 16:54 | P.PN ---
Subjective Progress Note Date: 01/19/23 - Reason for Consult Consult date: 01/18/23 Medical management - Chief Complaint Status post left knee arthroplasty - History of Present Illness Patient is a 72-year-old female with a known history of hypertension, memory impairment, osteoarthritis, history of gastric bypass surgery and prior history of smoking quit in 2019 was admitted to the hospital for elective left total knee arthroplasty. Patient is status post surgery on 01/17/2023. Tolerated very well. Currently patient is lying in the bed. Awake alert and oriented with baseline mentation. Patient does complain of pain in the left knee which is fairly controlled with medications. Otherwise patient is afebrile. No complaints of chest pain or shortness of breath. No nausea vomiting abdominal pain or diarrhea. Laboratory data showed WBC 5.4 hemoglobin 10.1 and platelets 235. Blood pressure was elevated slightly this afternoon with SBP in 155 mmHg. Denies any headache or dizziness or lightheadedness. 01/19/2023 Patient is seen and evaluated in follow-up this morning status post left knee arthroplasty. Patient reports her pain is somewhat severe at this time as she is waiting for a pain pill. Patient worked with physical therapy recommending rehab and patient is agreeable. Currently he is management is following and has admitted for insurance authorization which is pending. Patient would like to go to [facility]. Patient is afebrile with no reported chest pain or shortness of breath. Patient is tolerating diet with no reported nausea or vomiting. Patient denies any chest pain or shortness of breath. Patient reports she is not passing much gas and has not had a bowel movement yet but is voiding with no difficulties. Review of systems: Constitutional: No reports of fatigue, fever, or chills Cardiovascular: No reports of chest pain or palpitations Respiratory: No reports of shortness of breath or cough GI: No reports of nausea, vomiting, or diarrhea, reports not passing gas or bowel movement yet : No reports of dysuria or retention Neurovascular: reports of generalized weakness and continued left knee pain All medications have been reviewed PHYSICAL EXAMINATION: Patient is lying in the bed comfortably, no acute distress, awake alert and oriented.. Obese HEENT: Normocephalic. Neck is supple. Pupils reactive. Nostrils clear. Oral cavity is moist. Neck reveals no JVD, carotid bruits, or thyromegaly. CHEST EXAMINATION: Trachea is central. Symmetrical expansion. Lung salas clear to auscultation and percussion. CARDIAC: Normal S1, S2 with no gallops. No murmurs ABDOMEN: Soft. Bowel sounds present. Nontender. No organomegaly. No abdominal bruits. Extremities: reveal no edema. No clubbing or cyanosis Neurologically awake, alert, oriented x2-3 . Able to move all extremities. No gross focal neurological deficit. Skin: No rash or skin lesions. Psychiatric: Coperative. Nonsuicidal, Musculoskeletal: No joint swelling or deformity left knee surgical site intact. Minimal swelling. Assessment: Status post left total knee arthroplasty. Postoperative day 2 Severe osteoarthritis of the left knee Hypertension fairly controlled. Not on any medications at home. Memory impairment Obesity with a BMI of 37.6 Prior history of gastric bypass surgery History of smoking DVT prophylaxis. Patient is on aspirin twice daily GI prophylaxis Full code Plan: Patient will be continued on pain management, bowel regimen and encourage incentive spirometry. PT OT evaluated the patient recommending rehab and patient is agreeable. Case management following and has submitted for insurance authorization is patient like to go to [facility] medications reviewed and resumed Encouraged incentive spirometer use at least 10 times every hour while awake encouraged oral intake and increased activity as tolerated with restrictions per orthopedics We will continue to follow with orthopedics during hospitalization. Thank you kindly for this consultation. The impression and plan of care has been dictated by Estela Corbin, Nurse Practitioner as directed. Dr. Kinjal MD I have performed a history and examination and MDM of this patient, discussed the same with the dictator, and agree with the dictator's assessment and plan as written ,documented as a scribe. Based on total visit time, I have performed more than 50% of the visit. Objective - Vital Signs Vital signs: Vital Signs Temp 97.7 F 01/19/23 07:11 Pulse 64 01/19/23 07:11 Resp 18 01/19/23 07:11 BP 119/67 01/19/23 07:11 Pulse Ox 98 01/19/23 07:11 FiO2 Intake & Output 01/18/23 01/19/23 01/19/23 18:59 06:59 18:59 Intake Total 610 Balance 610 Intake: Intake, IV Titration 610 Amount Sodium Chloride 0.9% 1, 560 000 ml @ 70 mls/hr IV . [id number] [facility] Rx#:[id number] ceFAZolin 2 gm In Sodium 50 Chloride 0.9% 50 ml @ 100 mls/hr IVPB Q8HR [facility] Rx# :[id number] Other: Voiding Method Toilet # Voids 4 1 # Bowel Movements 1 - Labs CBC & Chem 7: 01/18/23 05:37 01/19/23 06:28 Labs: Abnormal Lab Results - Last 24 Hours (Table) 01/18/23 Range/Units 05:37 RBC 3.51 L (4.10-5.20) X 10*6/uL Hgb 10.1 L (12.0-15.0) d/dL Hct 32.1 L (37.2-46.3) % MCHC 31.5 L (32.0-37.0) d/dL
[2023-01-19] MEDS: SENNOSIDES-DOCUSATE SODIUM 1 EACH TAB PO SCH (20:52)
[2023-01-19] MEDS: DONEPEZIL 10 MG TAB PO SCH (20:52)
[2023-01-20] MEDS: HYDROcodone/APAP 7.5-325MG 1 EACH TAB PO PRN ×3 (05:45→20:08)
[2023-01-20] MEDS: ASPIRIN 325 MG TAB PO SCH ×2 (08:07→20:08)
--- NOTE | 2023-01-20 09:05 | P.PN ---
Subjective Progress Note Date: 01/20/23 Principal diagnosis: Primary osteoarthritis left knee. Status post total left knee arthroplasty. This is a 72-year-old female who is status post left total knee arthroplasty. This is postoperative day #3and patient is seen and evaluated at bedside today. Patient denies any new complaints today. Vital signs are stable. Objective - Vital Signs Vital signs: Vital Signs Temp 98.0 F 01/20/23 06:50 Pulse 78 01/20/23 06:50 Resp 16 01/20/23 06:50 BP 107/68 01/20/23 06:50 Pulse Ox 100 01/20/23 08:53 FiO2 Intake & Output 01/19/23 01/20/23 01/20/23 18:59 06:59 18:59 Intake Total 600 Balance 600 Intake: Oral 600 Other: # Voids 1 2 - Exam This is a 72-year-old female in no acute distress. She is alert and oriented 3. Exam of the left knee reveals her dressing is clean, dry and intact. She has full foot and ankle motion without difficulty or pain. Neurovascular status to the lower extremity is intact. - Labs CBC & Chem 7: 01/18/23 05:37 01/19/23 06:28 Labs: Abnormal Lab Results - Last 24 Hours (Table) 01/19/23 Range/Units 06:28 BUN 5.3 L (9.0-27.0) mg/dL Creatinine 0.5 L (0.6-1.5) mg/dL BUN/Creatinine Ratio 10.60 L (12.00-20.00) Ratio Calcium 8.5 L (8.7-10.3) mg/dL Assessment and Plan (1) Osteoarthritis of left knee Status: Acute Code(s): M17.12 - UNILATERAL PRIMARY OSTEOARTHRITIS, LEFT KNEE SNOMED Code(s): 874608376221959 (2) Status post total left knee replacement Status: Acute Code(s): Z96.652 - PRESENCE OF LEFT ARTIFICIAL KNEE JOINT SNOMED Code(s): 1671227539267 Plan: The clinical findings are discussed with the patient. She is awaiting transfer to inpatient rehab if insurance authorization is approved. She may be discharged today to inpatient rehab if cleared medically.
[2023-01-20 10:48] LABS: Basophils # (A) 0.04 X 10*3/uL (0.00-0.10); Basophils % (A) 0.7 %; Eosinophils % (A) 3.6 %; HCT 31.1 % (37.2-46.3); HGB 9.9 d/dL (12.0-15.0); Lymphocytes % (A) 30.6 %; MCH 28.9 pg (27.0-32.0); MCHC 31.8 d/dL (32.0-37.0); MCV 90.7 FL (80.0-97.0); Mean Platelet Volume 10.1 FL (9.5-12.2); Monocytes # (A) 0.45 X 10*3/uL (0.20-1.00); Monocytes % (A) 8.1 %; NRBC Per 100 WBC 0 X 10*3/uL (0.00-0.01); Neutrophils # (A) 3.15 X 10*3/uL (1.80-7.70); Neutrophils % (A) 56.6 %; Platelet Count 225 X 10*3/uL (140-440); RBC 3.43 X 10*6/uL (4.10-5.20); RDW 14.6 % (11.5-14.5); WBC 5.56 X 10*3/uL (4.50-10.00)
[2023-01-20] MEDS: DONEPEZIL 10 MG TAB PO SCH (20:08)
[2023-01-20] MEDS: SENNOSIDES-DOCUSATE SODIUM 1 EACH TAB PO SCH (20:08)
[2023-01-20] MEDS: SODIUM CHLORIDE 0.9% 1,000 ML IV SCH (21:25)
[2023-01-21] MEDS: HYDROcodone/APAP 7.5-325MG 1 EACH TAB PO PRN ×3 (01:16→15:08)
--- NOTE | 2023-01-21 06:15 | P.PN ---
Subjective Progress Note Date: 01/20/23 - Reason for Consult Consult date: 01/18/23 Medical management - Chief Complaint Status post left knee arthroplasty - History of Present Illness Patient is a 72-year-old female with a known history of hypertension, memory impairment, osteoarthritis, history of gastric bypass surgery and prior history of smoking quit in 2019 was admitted to the hospital for elective left total knee arthroplasty. Patient is status post surgery on 01/17/2023. Tolerated very well. Currently patient is lying in the bed. Awake alert and oriented with baseline mentation. Patient does complain of pain in the left knee which is fairly controlled with medications. Otherwise patient is afebrile. No complaints of chest pain or shortness of breath. No nausea vomiting abdominal pain or diarrhea. Laboratory data showed WBC 5.4 hemoglobin 10.1 and platelets 235. Blood pressure was elevated slightly this afternoon with SBP in 155 mmHg. Denies any headache or dizziness or lightheadedness. 01/19/2023 Patient is seen and evaluated in follow-up this morning status post left knee arthroplasty. Patient reports her pain is somewhat severe at this time as she is waiting for a pain pill. Patient worked with physical therapy recommending rehab and patient is agreeable. Currently he is management is following and has admitted for insurance authorization which is pending. Patient would like to go to [facility]. Patient is afebrile with no reported chest pain or shortness of breath. Patient is tolerating diet with no reported nausea or vomiting. Patient denies any chest pain or shortness of breath. Patient reports she is not passing much gas and has not had a bowel movement yet but is voiding with no difficulties. 01/20/2023 Patient is seen and evaluated in follow-up today currently sitting up in the chair with orthopedics following. Patient working with physical therapy daily recommending rehab and agreeable. Insurance authorization still pending at this time in case management following. Patient is afebrile with no reported chest pain or shortness of breath. Patient reports to tolerating diet with no reported nausea or vomiting. Patient is eating and drinking and will discontinue IV fluids. Encouraged incentive spirometer use at least 10 times every hour while awake. Continue with pain management per orthopedics. Recommend avoiding IV narcotics if possible. Review of systems: Constitutional: No reports of fatigue, fever, or chills Cardiovascular: No reports of chest pain or palpitations Respiratory: No reports of shortness of breath or cough GI: No reports of nausea, vomiting, or diarrhea, reports passing gas , no bowel movement yet : No reports of dysuria or retention Neurovascular: reports of generalized weakness and continued left knee pain All medications have been reviewed PHYSICAL EXAMINATION: Patient is sitting up in the chair comfortably, no acute distress, awake alert and oriented.. Obese HEENT: Normocephalic. Neck is supple. Pupils reactive. Nostrils clear. Oral cavity is moist. Neck reveals no JVD, carotid bruits, or thyromegaly. CHEST EXAMINATION: Trachea is central. Symmetrical expansion. Lung salas clear to auscultation and percussion. CARDIAC: Normal S1, S2 with no gallops. No murmurs ABDOMEN: Soft. Bowel sounds present. Nontender. No organomegaly. No abdominal bruits. Extremities: reveal no edema. No clubbing or cyanosis Neurologically awake, alert, oriented x2-3 . Able to move all extremities. No gross focal neurological deficit. Skin: No rash or skin lesions. Psychiatric: Coperative. Nonsuicidal, Musculoskeletal: No joint swelling or deformity left knee surgical site intact. Minimal swelling. Assessment: Status post left total knee arthroplasty. Postoperative day 3 Severe osteoarthritis of the left knee Hypertension fairly controlled. Not on any medications at home. Memory impairment Obesity with a BMI of 37.6 Prior history of gastric bypass surgery History of smoking DVT prophylaxis. Patient is on aspirin twice daily GI prophylaxis Full code Plan: Patient will be continued on pain management, bowel regimen and encourage incentive spirometry. PT OT evaluated the patient recommending rehab and patient is agreeable. Case management following and awaiting insurance authorization as patient would like to go to [facility] medications reviewed and resumed Encouraged incentive spirometer use at least 10 times every hour while awake encouraged oral intake and increased activity as tolerated with restrictions per orthopedics We will continue to follow with orthopedics during hospitalization. Thank you kindly for this consultation. Patient is medically stable for transfer to [facility] once insurance authorization is obtained The impression and plan of care has been dictated by Estela Corbin, Nurse Practitioner as directed. Dr. Kinjal MD I have performed a history and examination and MDM of this patient, discussed the same with the dictator, and agree with the dictator's assessment and plan as written ,documented as a scribe. Based on total visit time, I have performed more than 50% of the visit. Objective - Vital Signs Vital signs: Vital Signs Temp 98.0 F 01/20/23 06:50 Pulse 78 01/20/23 06:50 Resp 16 01/20/23 06:50 BP 107/68 01/20/23 06:50 Pulse Ox 100 01/20/23 08:53 FiO2 Intake & Output 01/19/23 01/20/23 01/20/23 18:59 06:59 18:59 Intake Total 600 Balance 600 Intake: Oral 600 Other: # Voids 1 2 - Labs CBC & Chem 7: 01/20/23 06:07 01/19/23 06:28 Labs: Abnormal Lab Results - Last 24 Hours (Table) 01/19/23 Range/Units 06:28 BUN 5.3 L (9.0-27.0) mg/dL Creatinine 0.5 L (0.6-1.5) mg/dL BUN/Creatinine Ratio 10.60 L (12.00-20.00) Ratio Calcium 8.5 L (8.7-10.3) mg/dL
[2023-01-21] MEDS: PANTOPRAZOLE 40 MG TABLET PO SCH (06:34)
--- NOTE | 2023-01-21 09:13 | P.DS ---
Providers Expected date of discharge: 01/21/23 Attending physician: Geovanni Feldman Consults: 01/17/23 08:32 Consult Physician Routine Consulting Provider: Amari Malik Consult Reason/Comments: medical management Do you want consulting provider notified?: Yes Primary care physician: Tiara Bonilla MD - Discharge Diagnosis(es) (1) Osteoarthritis of left knee Status: Acute (2) Status post total left knee replacement Status: Acute Hospital Course: This is a 72-year-old female with known history of degenerative arthritis of the left knee. The patient presented for evaluation as an outpatient. After discussion and consideration patient elects to proceed with total knee arthroplasty. The patient is seen preoperatively by Dr. Feldman and medically cleared for surgery by their primary care physician. Patient is admitted to [facility] on 01/17/2023 for total knee arthroplasty. The procedure is performed without complication or sequelae. The patient is doing well postoperatively. Labs and vital signs are stable on day of discharge. On day of discharge patient's knee incision is healing well. There is minimal erythema. There is no drainage noted at this time. There is minimal soft tissue swelling to the knee. Patient has full foot and ankle motion without difficulty or pain. Calf is soft and nontender to palpation. Neurovascular status to the left lower extremity is intact. Patient is discharged to rehab in good condition. Please see med rec for accurate list of home medications. Plan - Discharge Summary Discharge Rx Participant: Yes New Discharge Prescriptions: New Aspirin 325 mg PO BID #60 tab HYDROcodone/APAP 7.5-325MG [[place] 7.5-325] 1 - 2 tab PO Q6H PRN #32 tab PRN Reason: Pain Sennosides [Senokot] 2 tab PO DAILY PRN #60 tablet PRN Reason: Constipation Continue Diclofenac Sodium Gel [Voltaren Gel] 1 applic TOPICAL BID PRN PRN Reason: Pain Naproxen [Naprosyn] 500 mg PO BID PRN PRN Reason: Pain Donepezil [Aricept] 10 mg PO HS Discharge Medication List Diclofenac Sodium Gel [Voltaren Gel] 1 applic TOPICAL BID PRN 01/13/23 [History] Donepezil [Aricept] 10 mg PO HS 01/13/23 [History] Naproxen [Naprosyn] 500 mg PO BID PRN 01/13/23 [History] Aspirin 325 mg PO BID #60 tab 01/17/23 [Rx] HYDROcodone/APAP 7.5-325MG [[place] 7.5-325] 1 - 2 tab PO Q6H PRN #32 tab 01/17/23 [Rx] Sennosides [Senokot] 2 tab PO DAILY PRN #60 tablet 01/17/23 [Rx] Follow up Appointment(s)/Referral(s): Geovanni Feldman DO [Doctor of Osteopathic Medicine] - 02/03/23 9:45 am Patient Instructions/Handouts: *Surgery [facility] - On-Q Pain Pump Discharge Instructions, Knee Replacement (DC) Activity/Diet/Wound Care/Special Instructions: Weightbearing as tolerated with a walker. CPM 5-6h daily as tolerated. Leave dressing intact. Dressing may be removed by home care nurse or by patient in 7 days. Then change dressing twice daily until follow up. May shower with initial dressing intact and after removal. If dressing become saturated, please remove. Recommend use of compression stockings daily until follow up to help prevent swelling and blood clots. May remove at night before sleeping. Please take aspirin 325mg twice daily for 30 days to prevent blood clots. Please follow up with [facility] and call with any questions or concerns, . Discharge Disposition: TRANSFER TO SNF/ECF
[2023-01-21] MEDS: ASPIRIN 325 MG TAB PO SCH ×2 (09:28→20:14)
[2023-01-21] MEDS: SENNOSIDES-DOCUSATE SODIUM 1 EACH TAB PO SCH (20:13)
[2023-01-21] MEDS: DONEPEZIL 10 MG TAB PO SCH (20:14)
[2023-01-22] MEDS: HYDROcodone/APAP 7.5-325MG 1 EACH TAB PO PRN ×4 (00:31→23:17)
[2023-01-22] MEDS: PANTOPRAZOLE 40 MG TABLET PO SCH (06:26)
[2023-01-22] MEDS: ASPIRIN 325 MG TAB PO SCH ×2 (07:35→20:24)
--- NOTE | 2023-01-22 09:48 | P.PN ---
Subjective Progress Note Date: 01/22/23 This is a 72-year-old female who is status post left total knee arthroplasty. This is postoperative day #5 and patient is seen and evaluated at bedside today. Patient denies any new complaints today. Patient's discharge was postponed due to ECF authorization. Objective - Vital Signs Vital signs: Vital Signs Temp 98.5 F 01/22/23 07:50 Pulse 73 01/22/23 07:50 Resp 17 01/22/23 07:50 BP 119/66 01/22/23 07:50 Pulse Ox 93 L 01/22/23 07:50 FiO2 Intake & Output 01/21/23 01/22/23 01/22/23 18:59 06:59 18:59 Other: Voiding Method Toilet # Voids 4 2 # Bowel Movements 1 - Exam Vital signs are stable. Patient is in no acute distress and is alert and oriented 3. Calf is soft and nontender to palpation. Dressing is clean, dry, and intact. Patient has full foot and ankle motion without pain or difficulty. Sensation intact. Neurovascular status and circulatory status are intact. - Labs CBC & Chem 7: 01/20/23 06:07 01/19/23 06:28 Assessment and Plan (1) Osteoarthritis of left knee Status: Acute Code(s): M17.12 - UNILATERAL PRIMARY OSTEOARTHRITIS, LEFT KNEE SNOMED Code(s): 690228765525749 (2) Status post total left knee replacement Status: Acute Code(s): Z96.652 - PRESENCE OF LEFT ARTIFICIAL KNEE JOINT SNOMED Code(s): 1563720520243 Plan: #1 Continue with routine postoperative care and pain control, leave dressing in place for 7 days. #2 Anticoagulation with aspirin. #3 Physical therapy and CPM today. #4 Appreciate input from internal medicine. #5 Anticipate discharge to ECF tomorrow.
[2023-01-22] MEDS: DONEPEZIL 10 MG TAB PO SCH (20:24)
[2023-01-22] MEDS: SENNOSIDES-DOCUSATE SODIUM 1 EACH TAB PO SCH (20:24)
--- NOTE | 2023-01-23 00:18 | P.PN ---
Subjective Progress Note Date: 01/21/23 Patient is a 72-year-old female with a known history of hypertension, memory impairment, osteoarthritis, history of gastric bypass surgery and prior history of smoking quit in 2019 was admitted to the hospital for elective left total knee arthroplasty. Patient is status post surgery on 01/17/2023. Tolerated very well. Currently patient is lying in the bed. Awake alert and oriented with baseline mentation. Patient does complain of pain in the left knee which is fairly controlled with medications. Otherwise patient is afebrile. No complaints of chest pain or shortness of breath. No nausea vomiting abdominal pain or diarrhea. Laboratory data showed WBC 5.4 hemoglobin 10.1 and platelets 235. Blood pressure was elevated slightly this afternoon with SBP in 155 mmHg. Denies any headache or dizziness or lightheadedness. 01/19/2023 Patient is seen and evaluated in follow-up this morning status post left knee arthroplasty. Patient reports her pain is somewhat severe at this time as she is waiting for a pain pill. Patient worked with physical therapy recommending rehab and patient is agreeable. Currently he is management is following and has admitted for insurance authorization which is pending. Patient would like to go to [facility]. Patient is afebrile with no reported chest pain or shortness of breath. Patient is tolerating diet with no reported nausea or vomiting. Patient denies any chest pain or shortness of breath. Patient reports she is not passing much gas and has not had a bowel movement yet but is voiding with no difficulties. 01/20/2023 Patient is seen and evaluated in follow-up today currently sitting up in the chair with orthopedics following. Patient working with physical therapy daily recommending rehab and agreeable. Insurance authorization still pending at this time in case management following. Patient is afebrile with no reported chest pain or shortness of breath. Patient reports to tolerating diet with no reported nausea or vomiting. Patient is eating and drinking and will discontinue IV fluids. Encouraged incentive spirometer use at least 10 times every hour while awake. Continue with pain management per orthopedics. Recommend avoiding IV narcotics if possible. 01/21/2023 Patient is lying in the bed. Awake alert and oriented x3. Working with PT OT. No complaints of nausea vomiting or diarrhea. Tolerating oral diet. Patient to have bowel movement yesterday. Encourage incentive spirometry. Patient has been afebrile. Left leg swelling is improving. Pain is better. Review of systems: Constitutional: No reports of fatigue, fever, or chills Cardiovascular: No reports of chest pain or palpitations Respiratory: No reports of shortness of breath or cough GI: No reports of nausea, vomiting, or diarrhea, reports passing gas , no bowel movement yet : No reports of dysuria or retention Neurovascular: reports of generalized weakness and continued left knee pain All medications have been reviewed PHYSICAL EXAMINATION: Patient is sitting up in the chair comfortably, no acute distress, awake alert and oriented.. Obese HEENT: Normocephalic. Neck is supple. Pupils reactive. Nostrils clear. Oral cavity is moist. Neck reveals no JVD, carotid bruits, or thyromegaly. CHEST EXAMINATION: Trachea is central. Symmetrical expansion. Lung salas clear to auscultation and percussion. CARDIAC: Normal S1, S2 with no gallops. No murmurs ABDOMEN: Soft. Bowel sounds present. Nontender. No organomegaly. No abdominal bruits. Extremities: reveal no edema. No clubbing or cyanosis Neurologically awake, alert, oriented x2-3 . Able to move all extremities. No gross focal neurological deficit. Skin: No rash or skin lesions. Psychiatric: Coperative. Nonsuicidal, Musculoskeletal: No joint swelling or deformity left knee surgical site intact. Minimal swelling. Assessment: Status post left total knee arthroplasty. Postoperative day 4 Severe osteoarthritis of the left knee Hypertension fairly controlled. Not on any medications at home. Memory impairment Obesity with a BMI of 37.6 Prior history of gastric bypass surgery History of smoking DVT prophylaxis. Patient is on aspirin twice daily GI prophylaxis Full code Plan: Patient will be continued on pain management, bowel regimen and encourage incentive spirometry. PT OT evaluated the patient recommending rehab and patient is agreeable. Case management following and awaiting insurance authorization as patient would like to go to [facility] medications reviewed and resumed Encouraged incentive spirometer use at least 10 times every hour while awake encouraged oral intake and increased activity as tolerated with restrictions per orthopedics We will continue to follow with orthopedics during hospitalization. Thank you kindly for this consultation. Patient is medically stable for transfer to [facility] once insurance authorization is obtained Objective - Vital Signs Vital signs: Vital Signs Temp 98.6 F 01/21/23 13:30 Pulse 87 01/21/23 13:30 Resp 18 01/21/23 13:30 BP 116/69 01/21/23 13:30 Pulse Ox 95 01/21/23 13:30 FiO2 Intake & Output 01/21/23 01/21/23 01/22/23 06:59 18:59 06:59 Intake Total 480 Balance 480 Intake: Oral 480 Other: # Voids 2 4 # Bowel Movements 1 - Labs CBC & Chem 7: 01/20/23 06:07 01/19/23 06:28
--- NOTE | 2023-01-23 00:19 | P.PN ---
Subjective Progress Note Date: 01/22/23 Patient is a 72-year-old female with a known history of hypertension, memory impairment, osteoarthritis, history of gastric bypass surgery and prior history of smoking quit in 2019 was admitted to the hospital for elective left total knee arthroplasty. Patient is status post surgery on 01/17/2023. Tolerated very well. Currently patient is lying in the bed. Awake alert and oriented with baseline mentation. Patient does complain of pain in the left knee which is fairly controlled with medications. Otherwise patient is afebrile. No complaints of chest pain or shortness of breath. No nausea vomiting abdominal pain or diarrhea. Laboratory data showed WBC 5.4 hemoglobin 10.1 and platelets 235. Blood pressure was elevated slightly this afternoon with SBP in 155 mmHg. Denies any headache or dizziness or lightheadedness. 01/19/2023 Patient is seen and evaluated in follow-up this morning status post left knee arthroplasty. Patient reports her pain is somewhat severe at this time as she is waiting for a pain pill. Patient worked with physical therapy recommending rehab and patient is agreeable. Currently he is management is following and has admitted for insurance authorization which is pending. Patient would like to go to [facility]. Patient is afebrile with no reported chest pain or shortness of breath. Patient is tolerating diet with no reported nausea or vomiting. Patient denies any chest pain or shortness of breath. Patient reports she is not passing much gas and has not had a bowel movement yet but is voiding with no difficulties. 01/20/2023 Patient is seen and evaluated in follow-up today currently sitting up in the chair with orthopedics following. Patient working with physical therapy daily recommending rehab and agreeable. Insurance authorization still pending at this time in case management following. Patient is afebrile with no reported chest pain or shortness of breath. Patient reports to tolerating diet with no reported nausea or vomiting. Patient is eating and drinking and will discontinue IV fluids. Encouraged incentive spirometer use at least 10 times every hour while awake. Continue with pain management per orthopedics. Recommend avoiding IV narcotics if possible. 01/21/2023 Patient is lying in the bed. Awake alert and oriented x3. Working with PT OT. No complaints of nausea vomiting or diarrhea. Tolerating oral diet. Patient to have bowel movement yesterday. Encourage incentive spirometry. Patient has been afebrile. Left leg swelling is improving. Pain is better. 01/22/2023 Patient is currently resting in the bed. Awake alert and oriented x3. No complaints of chest pain or shortness of breath. Leg pain is better. No other acute overnight issues. Anticipate discharge to rehab tomorrow. Review of systems: Constitutional: No reports of fatigue, fever, or chills Cardiovascular: No reports of chest pain or palpitations Respiratory: No reports of shortness of breath or cough GI: No reports of nausea, vomiting, or diarrhea, reports passing gas , no bowel movement yet : No reports of dysuria or retention Neurovascular: reports of generalized weakness and continued left knee pain All medications have been reviewed PHYSICAL EXAMINATION: Patient is sitting up in the chair comfortably, no acute distress, awake alert and oriented.. Obese HEENT: Normocephalic. Neck is supple. Pupils reactive. Nostrils clear. Oral cavity is moist. Neck reveals no JVD, carotid bruits, or thyromegaly. CHEST EXAMINATION: Trachea is central. Symmetrical expansion. Lung salas clear to auscultation and percussion. CARDIAC: Normal S1, S2 with no gallops. No murmurs ABDOMEN: Soft. Bowel sounds present. Nontender. No organomegaly. No abdominal bruits. Extremities: reveal no edema. No clubbing or cyanosis Neurologically awake, alert, oriented x2-3 . Able to move all extremities. No gross focal neurological deficit. Skin: No rash or skin lesions. Psychiatric: Coperative. Nonsuicidal, Musculoskeletal: No joint swelling or deformity left knee surgical site intact. Minimal swelling. Assessment: Status post left total knee arthroplasty. Postoperative day 5 Severe osteoarthritis of the left knee Hypertension fairly controlled. Not on any medications at home. Memory impairment Obesity with a BMI of 37.6 Prior history of gastric bypass surgery History of smoking DVT prophylaxis. Patient is on aspirin twice daily GI prophylaxis Full code Plan: Patient will be continued on pain management, bowel regimen and encourage incentive spirometry. PT OT evaluated the patient recommending rehab and patient is agreeable. Case management following and awaiting insurance authorization as patient would like to go to [facility] medications reviewed and resumed Encouraged incentive spirometer use at least 10 times every hour while awake encouraged oral intake and increased activity as tolerated with restrictions per orthopedics We will continue to follow with orthopedics during hospitalization. Thank you kindly for this consultation. Patient is medically stable for transfer to [facility] once insurance authorization is obtained Objective - Vital Signs Vital signs: Vital Signs Temp 98.8 F 01/22/23 14:05 Pulse 80 01/22/23 14:05 Resp 17 01/22/23 14:05 BP 108/71 01/22/23 14:05 Pulse Ox 96 01/22/23 14:05 FiO2 Intake & Output 01/22/23 01/22/23 01/23/23 06:59 18:59 06:59 Other: Voiding Method Toilet # Voids 2 - Labs CBC & Chem 7: 01/20/23 06:07 01/19/23 06:28
[2023-01-23] MEDS: ASPIRIN 325 MG TAB PO SCH ×2 (07:29→21:30)
[2023-01-23] MEDS: PANTOPRAZOLE 40 MG TABLET PO SCH (07:29)
--- NOTE | 2023-01-23 09:04 | P.DS ---
Providers Expected date of discharge: 01/23/23 Attending physician: Geovanni Feldman Consults: 01/17/23 08:32 Consult Physician Routine Consulting Provider: Amari Malik Consult Reason/Comments: medical management Do you want consulting provider notified?: Yes Primary care physician: Tiara Bonilla MD - Discharge Diagnosis(es) (1) Osteoarthritis of left knee Status: Acute (2) Status post total left knee replacement Status: Acute Hospital Course: This is a 72-year-old female with known history of degenerative arthritis of the left knee. The patient presented for evaluation as an outpatient. After discussion and consideration patient elects to proceed with total knee arthroplasty. The patient is seen preoperatively by Dr. Feldman and medically cleared for surgery by their primary care physician. Patient is admitted to [facility] on 01/17/2023 for total knee arthroplasty. The procedure is performed without complication or sequelae. The patient is doing well postoperatively. Labs and vital signs are stable on day of discharge. On day of discharge patient's knee incision is healing well. There is minimal erythema. There is no drainage noted at this time. There is minimal soft tissue swelling to the knee. Patient has full foot and ankle motion without difficulty or pain. Calf is soft and nontender to palpation. Neurovascular status to the left lower extremity is intact. Patient is discharged to rehab in good condition. Please see [facility] rec for accurate list of home medications. Patient Condition at Discharge: Good Plan - Discharge Summary Discharge Rx Participant: Yes New Discharge Prescriptions: New Aspirin 325 mg PO BID #60 tab HYDROcodone/APAP 7.5-325MG [[place] 7.5-325] 1 - 2 tab PO Q6H PRN #32 tab PRN Reason: Pain Sennosides [Senokot] 2 tab PO DAILY PRN #60 tablet PRN Reason: Constipation Continue Diclofenac Sodium Gel [Voltaren Gel] 1 applic TOPICAL BID PRN PRN Reason: Pain Naproxen [Naprosyn] 500 mg PO BID PRN PRN Reason: Pain Donepezil [Aricept] 10 mg PO HS Discharge Medication List Diclofenac Sodium Gel [Voltaren Gel] 1 applic TOPICAL BID PRN 01/13/23 [History] Donepezil [Aricept] 10 mg PO HS 01/13/23 [History] Naproxen [Naprosyn] 500 mg PO BID PRN 01/13/23 [History] Aspirin 325 mg PO BID #60 tab 01/17/23 [Rx] HYDROcodone/APAP 7.5-325MG [[place] 7.5-325] 1 - 2 tab PO Q6H PRN #32 tab 01/17/23 [Rx] Sennosides [Senokot] 2 tab PO DAILY PRN #60 tablet 01/17/23 [Rx] Follow up Appointment(s)/Referral(s): Geovanni Feldman DO [Doctor of Osteopathic Medicine] - 02/03/23 9:45 am Patient Instructions/Handouts: *Surgery [facility] - On-Q Pain Pump Discharge Instructions, Knee Replacement (DC) Activity/Diet/Wound Care/Special Instructions: Weightbearing as tolerated with a walker. CPM 5-6h daily as tolerated. Leave dressing intact. Dressing may be removed by home care nurse or by patient in 7 days. Then change dressing twice daily until follow up. May shower with initial dressing intact and after removal. If dressing become saturated, please remove. Recommend use of compression stockings daily until follow up to help prevent swelling and blood clots. May remove at night before sleeping. Please take aspirin 325mg twice daily for 30 days to prevent blood clots. Please follow up with [facility] and call with any questions or concerns, . Discharge Disposition: TRANSFER TO SNF/ECF
[2023-01-23] MEDS: HYDROcodone/APAP 7.5-325MG 1 EACH TAB PO PRN ×2 (09:24→21:30)
[2023-01-23 10:51] LABS: Basophils # (A) 0.03 X 10*3/uL (0.00-0.10); Basophils % (A) 0.5 %; Eosinophils # (A) 0.18 X 10*3/uL (0.04-0.35); Eosinophils % (A) 3.1 %; HCT 32.9 % (37.2-46.3); HGB 10.2 d/dL (12.0-15.0); Lymphocytes # (A) 0.99 X 10*3/uL (0.90-5.00); MCH 28.8 pg (27.0-32.0); MCV 92.9 FL (80.0-97.0); Mean Platelet Volume 9.9 FL (9.5-12.2); Monocytes # (A) 0.63 X 10*3/uL (0.20-1.00); Monocytes % (A) 10.8 %; NRBC Per 100 WBC 0 X 10*3/uL (0.00-0.01); Neutrophils # (A) 3.96 X 10*3/uL (1.80-7.70); Neutrophils % (A) 68.1 %; Platelet Count 309 X 10*3/uL (140-440); RBC 3.54 X 10*6/uL (4.10-5.20); RDW 14.7 % (11.5-14.5); WBC 5.82 X 10*3/uL (4.50-10.00)
--- NOTE | 2023-01-23 13:27 | US ---
EXAMINATION TYPE: US venous doppler duplex LE BI DATE OF EXAM: 01/23/2023 1:19 PM COMPARISON: NONE CLINICAL INDICATION: Female, 72 years old with history of leg swelling; Left knee replacement. pain b ilateral legs, worse on the left. Edema SIDE PERFORMED: bilateral TECHNIQUE: The lower extremity deep venous system is examined utilizing real time linear array sonog paul with graded compression, doppler sonography and color-flow sonography. VESSELS IMAGED: Common Femoral Vein Deep Femoral Vein Greater Saphenous Vein * Femoral Vein Popliteal Vein Small Saphenous Vein * Proximal Calf Veins (* superficial vessels) *Technical limitations due to patient's body habitus Right Leg: no evidence of DVT as visualized Left Leg: no evidence of DVT as visualized IMPRESSION: Grayscale, color doppler, spectral doppler imaging performed of the deep veins of the lo wer extremities. There is normal flow, compressibility, vascular waveforms.
[2023-01-23 15:31] LABS: Blood Urea Nitrogen 12.3 mg/dL (9.0-27.0); Calcium 8.6 mg/dL (8.7-10.3); Carbon Dioxide 22.6 mmol/L (21.6-31.8); Chloride 108 mmol/L (96-109); Glucose 96 mg/dL (70-110); Potassium 4.5 mmol/L (3.5-5.5); Sodium 142 mmol/L (135-145)
--- NOTE | 2023-01-23 15:50 | P.PN ---
Subjective Progress Note Date: 01/23/23 - Reason for Consult Consult date: 01/18/23 Medical management - Chief Complaint Status post left knee arthroplasty - History of Present Illness Patient is a 72-year-old female with a known history of hypertension, memory impairment, osteoarthritis, history of gastric bypass surgery and prior history of smoking quit in 2019 was admitted to the hospital for elective left total knee arthroplasty. Patient is status post surgery on 01/17/2023. Tolerated very well. Currently patient is lying in the bed. Awake alert and oriented with baseline mentation. Patient does complain of pain in the left knee which is fairly controlled with medications. Otherwise patient is afebrile. No complaints of chest pain or shortness of breath. No nausea vomiting abdominal pain or diarrhea. Laboratory data showed WBC 5.4 hemoglobin 10.1 and platelets 235. Blood pressure was elevated slightly this afternoon with SBP in 155 mmHg. Denies any headache or dizziness or lightheadedness. 01/19/2023 Patient is seen and evaluated in follow-up this morning status post left knee arthroplasty. Patient reports her pain is somewhat severe at this time as she is waiting for a pain pill. Patient worked with physical therapy recommending rehab and patient is agreeable. Currently he is management is following and has admitted for insurance authorization which is pending. Patient would like to go to [facility]. Patient is afebrile with no reported chest pain or shortness of breath. Patient is tolerating diet with no reported nausea or vomiting. Patient denies any chest pain or shortness of breath. Patient reports she is not passing much gas and has not had a bowel movement yet but is voiding with no difficulties. 01/20/2023 Patient is seen and evaluated in follow-up today currently sitting up in the chair with orthopedics following. Patient working with physical therapy daily recommending rehab and agreeable. Insurance authorization still pending at this time in case management following. Patient is afebrile with no reported chest pain or shortness of breath. Patient reports to tolerating diet with no reported nausea or vomiting. Patient is eating and drinking and will discontinue IV fluids. Encouraged incentive spirometer use at least 10 times every hour while awake. Continue with pain management per orthopedics. Recommend avoiding IV narcotics if possible. 01/21/2023 Patient is lying in the bed. Awake alert and oriented x3. Working with PT OT. No complaints of nausea vomiting or diarrhea. Tolerating oral diet. Patient to have bowel movement yesterday. Encourage incentive spirometry. Patient has been afebrile. Left leg swelling is improving. Pain is better. 01/22/2023 Patient is currently resting in the bed. Awake alert and oriented x3. No complaints of chest pain or shortness of breath. Leg pain is better. No other acute overnight issues. Anticipate discharge to rehab tomorrow. 01/23/2023 Patient is seen in follow-up today currently sitting up in the chair. Patient having some bilateral lower extremity swelling worse on the left and will obtain Dopplers of lower extremities to rule out DVT. Patient continues to await insurance authorization to go to [facility] for continued strength and mobility. Patient plans on going to [facility]. Patient is afebrile with no reports of chest pain or shortness of breath. Patient has been instructed to continue using incentive spirometer and elevating lower extremity swelling rest. Patient denies nausea or vomiting and tolerating diet. Patient is medically stable once insurance authorization is obtained for discharge to [facility]. Review of systems: Constitutional: No reports of fatigue, fever, or chills Cardiovascular: No reports of chest pain or palpitations Respiratory: No reports of shortness of breath or cough GI: No reports of nausea, vomiting, or diarrhea, reports passing gas , no bowel movement yet : No reports of dysuria or retention Neurovascular: reports of generalized weakness and continued left knee pain All medications have been reviewed PHYSICAL EXAMINATION: Patient is sitting up in the chair comfortably, no acute distress, awake alert and oriented.. Obese HEENT: Normocephalic. Neck is supple. Pupils reactive. Nostrils clear. Oral cavity is moist. Neck reveals no JVD, carotid bruits, or thyromegaly. CHEST EXAMINATION: Trachea is central. Symmetrical expansion. Lung salas clear to auscultation and percussion. CARDIAC: Normal S1, S2 with no gallops. No murmurs ABDOMEN: Soft. Bowel sounds present. Nontender. No organomegaly. No abdominal bruits. Extremities: reveal no edema. No clubbing or cyanosis Neurologically awake, alert, oriented x2-3 . Able to move all extremities. No gross focal neurological deficit. Skin: No rash or skin lesions. Psychiatric: Coperative. Nonsuicidal, Musculoskeletal: No joint swelling or deformity left knee surgical site intact. Minimal swelling. Assessment: Status post left total knee arthroplasty. Postoperative day 3 Severe osteoarthritis of the left knee Bilateral lower extremity swelling, DVTs ruled out Hypertension fairly controlled. Not on any medications at home. Memory impairment Obesity with a BMI of 37.6 Prior history of gastric bypass surgery History of smoking DVT prophylaxis. Patient is on aspirin twice daily GI prophylaxis Full code Plan: Patient continue with current medications and bowel regimen with orthopedics following. Awaiting to go to [facility] requiring insurance authorization and scheduled peer to peer with the insurance as they have denied at this time. Patient with some lower extremity swelling worse on the left although chronic has large lower extremities with some chronic edema. Obtained Dopplers of lower extremities and were negative for DVT. Patient is continued on large dose aspirin twice daily per orthopedics Patient work with physical therapy daily Home medications reviewed and resumed as appropriate Patient is medically stable and awaiting insurance authorization and peer to peer review. Social work/case management following working on discharge planuriel whitten Thank you kindly for this consultation. We will continue to follow with orthopedics during hospitalization. The impression and plan of care has been dictated by Estela Corbin, Nurse Practitioner as directed. Dr. King MD I have performed a history and examination and MDM of this patient, discussed the same with the dictator, and agree with the dictator's assessment and plan as written ,documented as a scribe. Based on total visit time, I have performed more than 50% of the visit. Objective - Vital Signs Vital signs: Vital Signs Temp 98.2 F 01/23/23 08:00 Pulse 79 01/23/23 08:00 Resp 20 01/23/23 08:00 BP 117/76 01/23/23 08:00 Pulse Ox 99 01/23/23 08:00 FiO2 Intake & Output 01/22/23 01/23/23 01/23/23 18:59 06:59 18:59 Other: Voiding Method Toilet # Voids 4 - Labs CBC & Chem 7: 01/23/23 07:11 01/23/23 07:11 Labs: Abnormal Lab Results - Last 24 Hours (Table) 01/23/23 Range/Units 07:11 RBC 3.54 L (4.10-5.20) X 10*6/uL Hgb 10.2 L (12.0-15.0) d/dL Hct 32.9 L (37.2-46.3) % MCHC 31.0 L (32.0-37.0) d/dL RDW 14.7 H (11.5-14.5) %
[2023-01-23] MEDS: SENNOSIDES-DOCUSATE SODIUM 1 EACH TAB PO SCH (21:30)
[2023-01-23] MEDS: DONEPEZIL 10 MG TAB PO SCH (21:30)
[2023-01-24] MEDS: HYDROcodone/APAP 7.5-325MG 1 EACH TAB PO PRN (03:25)
[2023-01-24] MEDS: PANTOPRAZOLE 40 MG TABLET PO SCH (06:27)
[2023-01-24 08:14] VITALS: BP 130/79; PULSE 82; RESP 17; TEMP 98.6
[2023-01-24] MEDS: ASPIRIN 325 MG TAB PO SCH (08:32)
[2023-01-24 12:15] VITALS: BMI 37.5
--- NOTE | 2023-01-24 15:10 | P.PN ---
Subjective Progress Note Date: 01/24/23 - Reason for Consult Consult date: 01/18/23 Medical management - Chief Complaint Status post left knee arthroplasty - History of Present Illness Patient is a 72-year-old female with a known history of hypertension, memory impairment, osteoarthritis, history of gastric bypass surgery and prior history of smoking quit in 2019 was admitted to the hospital for elective left total knee arthroplasty. Patient is status post surgery on 01/17/2023. Tolerated very well. Currently patient is lying in the bed. Awake alert and oriented with baseline mentation. Patient does complain of pain in the left knee which is fairly controlled with medications. Otherwise patient is afebrile. No complaints of chest pain or shortness of breath. No nausea vomiting abdominal pain or diarrhea. Laboratory data showed WBC 5.4 hemoglobin 10.1 and platelets 235. Blood pressure was elevated slightly this afternoon with SBP in 155 mmHg. Denies any headache or dizziness or lightheadedness. 01/19/2023 Patient is seen and evaluated in follow-up this morning status post left knee arthroplasty. Patient reports her pain is somewhat severe at this time as she is waiting for a pain pill. Patient worked with physical therapy recommending rehab and patient is agreeable. Currently he is management is following and has admitted for insurance authorization which is pending. Patient would like to go to [facility]. Patient is afebrile with no reported chest pain or shortness of breath. Patient is tolerating diet with no reported nausea or vomiting. Patient denies any chest pain or shortness of breath. Patient reports she is not passing much gas and has not had a bowel movement yet but is voiding with no difficulties. 01/20/2023 Patient is seen and evaluated in follow-up today currently sitting up in the chair with orthopedics following. Patient working with physical therapy daily recommending rehab and agreeable. Insurance authorization still pending at this time in case management following. Patient is afebrile with no reported chest pain or shortness of breath. Patient reports to tolerating diet with no reported nausea or vomiting. Patient is eating and drinking and will discontinue IV fluids. Encouraged incentive spirometer use at least 10 times every hour while awake. Continue with pain management per orthopedics. Recommend avoiding IV narcotics if possible. 01/21/2023 Patient is lying in the bed. Awake alert and oriented x3. Working with PT OT. No complaints of nausea vomiting or diarrhea. Tolerating oral diet. Patient to have bowel movement yesterday. Encourage incentive spirometry. Patient has been afebrile. Left leg swelling is improving. Pain is better. 01/22/2023 Patient is currently resting in the bed. Awake alert and oriented x3. No complaints of chest pain or shortness of breath. Leg pain is better. No other acute overnight issues. Anticipate discharge to rehab tomorrow. 01/23/2023 Patient is seen in follow-up today currently sitting up in the chair. Patient having some bilateral lower extremity swelling worse on the left and will obtain Dopplers of lower extremities to rule out DVT. Patient continues to await insurance authorization to go to [facility] for continued strength and mobility. Patient plans on going to [facility]. Patient is afebrile with no reports of chest pain or shortness of breath. Patient has been instructed to continue using incentive spirometer and elevating lower extremity swelling rest. Patient denies nausea or vomiting and tolerating diet. Patient is medically stable once insurance authorization is obtained for discharge to [facility]. 01/24/2023 Patient was seen in follow-up this morning apparently the insurance authorization was denied and patient will be going home and arranging for home care. Patient is afebrile with no reported chest pain or shortness of breath. Patient reports her pain as tolerated and patient did have bilateral lower extremity Dopplers done yesterday which were negative. Patient will continue on large dose aspirin twice daily per orthopedics close outpatient follow-up. Patient was instructed to take the incentive spirometer home and continue using while at home. Patient also instructed to follow-up with her primary care provider on discharge. Patient is medically stable for discharge today. Review of systems: Constitutional: No reports of fatigue, fever, or chills Cardiovascular: No reports of chest pain or palpitations Respiratory: No reports of shortness of breath or cough GI: No reports of nausea, vomiting, or diarrhea, reports passing gas , having bowel movements : No reports of dysuria or retention Neurovascular: reports of generalized weakness and continued left knee pain although reports is currently controlled on regimen All medications have been reviewed PHYSICAL EXAMINATION: Patient is sitting up in the bed , awake alert and oriented.. Obese HEENT: Normocephalic. Neck is supple. Pupils reactive. Nostrils clear. Oral cavity is moist. Neck reveals no JVD, carotid bruits, or thyromegaly. CHEST EXAMINATION: Trachea is central. Symmetrical expansion. Lung salas clear to auscultation and percussion. CARDIAC: Normal S1, S2 with no gallops. No murmurs ABDOMEN: Soft. Bowel sounds present. Nontender. No organomegaly. No abdominal bruits. Extremities: reveal no edema. No clubbing or cyanosis Neurologically awake, alert, oriented x2-3 . Able to move all extremities. No gross focal neurological deficit. Skin: No rash or skin lesions. Psychiatric: Coperative. Nonsuicidal, Musculoskeletal: No joint swelling or deformity left knee surgical site intact. Minimal swelling. Assessment: Status post left total knee arthroplasty. Severe osteoarthritis of the left knee Bilateral lower extremity swelling, DVTs ruled out Hypertension fairly controlled. Not on any medications at home. Memory impairment Obesity with a BMI of 37.6 Prior history of gastric bypass surgery History of smoking DVT prophylaxis. Patient is on aspirin twice daily GI prophylaxis Full code Plan: Patient continue with current medications and bowel regimen with orthopedics following. Insurance authorization was denied and patient will be going home with home care being arranged. Patient has family support at the home as well Patient with some lower extremity swelling worse on the left although chronic has large lower extremities with some chronic edema. Obtained Dopplers of lower extremities and were negative for DVT. Patient is continued on large dose aspirin twice daily per orthopedics Recommend outpatient rehab Home medications reviewed and resumed as appropriate Patient is medically stable and planning on going home with home care Thank you kindly for this consultation. We will continue to follow with orthopedics during hospitalization. The impression and plan of care has been dictated by Estela Corbin, Nurse Practitioner as directed. Dr. King MD I have performed a history and examination and MDM of this patient, discussed the same with the dictator, and agree with the dictator's assessment and plan as written ,documented as a scribe. Based on total visit time, I have performed more than 50% of the visit. Objective - Vital Signs Vital signs: Vital Signs Temp 98.6 F 01/24/23 07:00 Pulse 82 01/24/23 07:00 Resp 17 01/24/23 07:00 BP 130/79 01/24/23 07:00 Pulse Ox 98 01/24/23 07:00 FiO2 Intake & Output 01/23/23 01/24/23 01/24/23 18:59 06:59 18:59 Weight 100.8 kg Other: # Voids 5 1 # Bowel Movements 1 - Labs CBC & Chem 7: 01/23/23 07:11 01/23/23 07:11 Labs: Abnormal Lab Results - Last 24 Hours (Table) 01/23/23 Range/Units 07:11 BUN/Creatinine Ratio 20.50 H (12.00-20.00) Ratio Calcium 8.6 L (8.7-10.3) mg/dL
== END 2023-01-24 13:27 | disposition home health service (06) ==
LOC: OR 07:18 → 4SSUR 10:44 → OR 01-24 13:27
PROVIDERS: ATTEND Orthopaedic Surgery
DX: M17.12 Unilateral primary osteoarthritis, left knee (principal); M25.762 Osteophyte, left knee; G89.18 Other acute postprocedural pain; I10 Essential (primary) hypertension; F12.90 Cannabis use, unspecified, uncomplicated; Z87.891 Personal history of nicotine dependence; Z98.890 Other specified postprocedural states; Z98.891 History of uterine scar from previous surgery; Z86.59 Personal history of other mental and behavioral disorders; Z79.899 Other long term (current) drug therapy
CPT/HCPCS: 97162; 64999; 64448; 85025; 73560; 27447; C1713; C1776; C1751; J2250; J1100; J0690 ×2; J2405; J3010; J2795; J1170

== ENCOUNTER → 2023-08-08 | Outpatient (CLI) | payer MEDICARE, SELFPAY ==
--- NOTE | 2023-08-14 09:06 | MM ---
Reason for Exam: Screening (asymptomatic). Patient History: Menarche at age 13. First Full-Term at age 17. Postmenopausal. Risk Values: Miryam 5 year model risk: 1.8%. NCI Lifetime model risk: 4.4%. Prior Study Comparison: No prior studies available for comparison. Tissue Density: The breasts are heterogeneously dense, which may obscure small masses. Findings: Analyzed By CAD. No solid or cystic masses are identified. Post nipple shadowing is present. Overall Assessment: Benign, BI-RAD 2 Management: Screening Mammogram of both breasts in 1 year. A clinical breast exam by your physician is recommended on an annual basis and results should be correlated with mammographic findings. This exam should not preclude additional follow-up of suspicious palpable abnormalities. Results were given to the patient verbally at the time of exam. Electronically signed and approved by: Mayank Rodriguez D.O. Radiologis
== END | disposition home or self-care (01) ==
LOC: RADMAMWWP 10:35
PROVIDERS: ATTEND Family Medicine
DX: Z12.31 Encounter for screening mammogram for malignant neoplasm of breast (principal); Z78.0 Asymptomatic menopausal state
CPT/HCPCS: 77063; 77067

== ENCOUNTER 2024-01-21 17:43 | Emergency (ER) | payer MEDICARE, OTHER, SELFPAY ==
[2024-01-21 18:06] VITALS: TEMP 97.8
--- NOTE | 2024-01-21 18:15 | ED ---
Abdominal Pain HPI - General Source: patient, RN notes reviewed Mode of arrival: wheelchair Limitations: no limitations <Ashly Moreno - Last Filed: 01/21/24 18:14> <Kathy Page - Last Filed: 01/22/24 19:10> - General Chief Complaint: Abdominal Pain Stated Complaint: Vaginal bleeding, dizziness, abd pain Time Seen by Provider: 01/21/24 18:14 - History of Present Illness Initial Comments: Quick note: 73-year-old female presented to the ER with a chief complaint of dizziness. Patient states has been ongoing for the past couple days. She states today she started to have lower abdominal pain with vaginal bleeding. She also reports an episode of epistaxis. No fevers. No blood thinner use. Patient denies any chest pain or shortness of breath. (Ashly Moreno) 73-year-old female history of Alzheimer's dementia presents emergency department accompanied by family including chief complaint of bleeding. Patient states that when she went to use the restroom today and urinated she wiped and noticed there was a bit of blood on the toilet paper. Patient denies passage of clots or discolored urine. Currently she denies vaginal bleeding and states that the only episode occurred this morning. It was reported that patient had an episode of epistaxis this morning by family members. Currently she is denying shortness of breath, chest pain, heart palpitations, abdominal pain, difficulty breathing, dysuria, hematuria, increase in urinary frequency or urgency. Family states the patient does have a history of urinary tract infections. (Kathy Page) - Related Data Home Medications Medication Instructions Recorded Confirmed Diclofenac Sodium Gel [Voltaren 1% 1 applic TOPICAL BID PRN 01/13/23 01/13/23 Gel] Donepezil [Aricept] 10 mg PO HS 01/13/23 01/17/23 Naproxen [Naprosyn] 500 mg PO BID PRN 01/13/23 01/13/23 Previous Rx's Medication Instructions Recorded Aspirin 325 mg PO BID #60 tab 01/17/23 HYDROcodone/APAP 7.5-325MG [[place] 1 - 2 tab PO Q6H PRN #32 tab 01/17/23 7.5-325] Sennosides [Senokot] 2 tab PO DAILY PRN #60 tablet 01/17/23 Allergies Allergy/AdvReac Type Severity Reaction Status Date / Time aspirin Allergy Unknown Verified 01/17/23 07:45 Review of Systems ROS Other: All systems not noted in ROS Statement are negative. <GavingioAshly - Last Filed: 01/21/24 18:14> ROS Other: All systems not noted in ROS Statement are negative. <Kathy Page - Last Filed: 01/22/24 19:10> ROS Statement: Those systems with pertinent positive or pertinent negative responses have been documented in the HPI. Past Medical History Past Medical History: No Reported History Additional Past Medical History / Comment(s): vertigo History of Any Multi-Drug Resistant Organisms: None Reported Past Surgical History: Bariatric Surgery, Section Additional Past Surgical History / Comment(s): Gastric Bypass Past Anesthesia/Blood Transfusion Reactions: No Reported Reaction Past Psychological History: No Psychological Hx Reported Smoking Status: Never smoker Past Alcohol Use History: None Reported Past Drug Use History: Marijuana - Past Family History Father Family Medical History: Dementia Mother Family Medical History: Coronary Artery Disease (CAD) <GavingioAshly - Last Filed: 01/21/24 18:14> General Exam Limitations: no limitations <Ashly Moreno - Last Filed: 01/21/24 18:14> General appearance: alert, in no apparent distress Head exam: Present: atraumatic, normocephalic, normal inspection ENT exam: Present: normal exam, mucous membranes moist Neck exam: Present: normal inspection. Absent: tenderness, meningismus, lymphadenopathy Respiratory exam: Present: normal lung sounds bilaterally. Absent: respiratory distress, wheezes, rales, rhonchi, stridor Cardiovascular Exam: Present: regular rate, normal rhythm, normal heart sounds. Absent: systolic murmur, diastolic murmur, rubs, gallop, clicks GI/Abdominal exam: Present: soft, normal bowel sounds. Absent: distended, tenderness, guarding, rebound, rigid External exam: Present: normal external exam. Absent: erythema, swelling Speculum exam: Present: normal speculum exam. Absent: erythema, vaginal discharge, cervical discharge, vaginal bleeding By manual exam: Present: normal by manual exam Extremities exam: Present: normal inspection, full ROM, normal capillary refill. Absent: tenderness, pedal edema, joint swelling, calf tenderness Back exam: Present: normal inspection Skin exam: Present: warm, dry, intact, normal color. Absent: rash <Kathy Page - Last Filed: 01/22/24 19:10> - General Exam Comments Initial Comments: Visual Physical Exam Vital signs reviewed General: Well-appearing, nontoxic, no acute distress. Head: Normocephalic, atraumatic Eyes: PERRLA, EOMI ENT: Airway patent Chest: Nonlabored breathing Skin: No visual rash, normal skin tone Neuro: Alert and oriented 3 Musculoskeletal: No gross abnormalities (Ashly Moreno) Course Vital Signs 01/21/24 01/21/24 18:01 22:20 Temperature 97.8 F Pulse Rate 71 83 Respiratory 16 18 Rate Blood Pressure 112/72 128/78 O2 Sat by Pulse 98 98 Oximetry Medical Decision Making <Ashly Moreno - Last Filed: 01/21/24 18:14> - Lab Data Result diagrams: 01/21/24 20:05 01/21/24 20:05 <Kathy Page - Last Filed: 01/22/24 19:10> - Medical Decision Making I performed the quick note portion of this chart. Electronically signed by Ashly Moreno PA-C (Ashly Moreno) Was pt. sent in by a medical professional or institution ([facility], C[facility], urgent care, hospital, or care home...) When possible be specific @ -No Did you speak to anyone other than the patient for history (EMS, parent, family, police, friend...)? What history was obtained from this source @ -I spoke to patient's and sister at bedside states the patient has a history of dementia and she told them that this afternoon she had an episode of vaginal bleeding. Did you review nursing and triage notes (agree or disagree)? Why? @ -I reviewed and agree with nursing and triage notes Were old charts reviewed (outside hosp., previous admission, EMS record, old EKG, old radiological studies, urgent care reports/EKG's, care home records)? Report findings @ -No old charts were reviewed Differential Diagnosis (chest pain, altered mental status, abdominal pain women, abdominal pain men, vaginal bleeding, weakness, fever, dyspnea, syncope, headache, dizziness, GI bleed, back pain, seizure, CVA, palpatations, mental health, musculoskeletal)? @ -Differential Vaginal Bleeding: Spontaneous , threatened , molar , ectopic , bloody show, incompetent cervix, abruptioplacenta, placenta previa, uterine rupture, dysfunctional uterine bleeding, hemorrhage, uterine fibr oids, this is not meant to be an all-inclusive list. EKG interpreted by me (3pts min.). @ -Completed at 1958 sinus rhythm with ventricular to 65, QRS 84, QTc 395. No acute signs of ischemia. X-rays interpreted by me (1pt min.). @ -None done CT interpreted by me (1pt min.). @ -None done U/S interpreted by me (1pt. min.). @ -None done What testing was considered but not performed or refused? (CT, X-rays, U/S, labs)? Why? @ -None What meds were considered but not given or refused? Why? @ -None Did you discuss the management of the patient with other professionals (professionals i.e. , PA, CORE RESCUER, lab, RT, psych nurse, health care social worker, optometric coordinator, teacher, residential care officer, complex case manager)? Give summary @ -No Was smoking cessation discussed for >3mins.? @ -No Was critical care preformed (if so, how long)? @ -No Were there social determinants of health that impacted care today? How? (Homelessness, low income, unemployed, alcoholism, drug addiction, transportation, low edu. Level, literacy, decrease access to med. care, retirement, rehab)? @ -No Was there de-escalation of care discussed even if they declined (Discuss DNR or withdrawal of care, Hospice)? DNR status @ -No What co-morbidities impacted this encounter? (DM, HTN, Smoking, COPD, CAD, Cancer, CVA, ARF, Chemo, Hep., AIDS, mental health diagnosis, sleep apnea, morbid obesity)? @ -None Was patient admitted / discharged? Hospital course, mention meds given and route, prescriptions, significant lab abnormalities, going to OR and other pertinent info. @ -Discharge. 73-year-old female with vaginal bleeding. Patient was originally evaluated as a quick note where laboratory studies were ordered. On my evaluation the patient she is resting comfortably no signs of acute distress. Discussion with the patient she actually denies overt vaginal bleeding states that she had a mild amount of blood while she was wiping after using the restroom this afternoon. Denies recent or recurrent episodes of this. Physical examination benign with no acute findings. CBC, CMP, coagulation profile within normal limits, urinalysis negative for signs of infection, no blood. Cepheid negative. Pelvic examination of the patient unremarkable with no signs of vaginal bleeding. Discussion with patient at bedside to continue to monitor and return to emergency department for any new or worsening symptoms. All questions answered at bedside and strict return parameters discussed with the patient she is verbalized understanding. Case discussed with Dr. Aleman Undiagnosed new problem with uncertain prognosis? @ -No Drug Therapy requiring intensive monitoring for toxicity (Heparin, Nitro, Insulin, Cardizem)? @ -No Were any procedures done? @ -No Diagnosis/symptom? @ -Abdominal pain Acute, or Chronic, or Acute on Chronic? @ -Acute Uncomplicated (without systemic symptoms) or Complicated (systemic symptoms)? @ -Uncomplicated Side effects of treatment? @ -No Exacerbation, Progression, or Severe Exacerbation? @ -No Poses a threat to life or bodily function? How? (Chest pain, [place], [place], pneumonia, PE, COPD, DKA, ARF, appy, cholecystitis, CVA, Diverticulitis, Homicidal, Suicidal, threat to staff... and all critical care pts) @ -No (Kathy Page) - Lab Data Lab Results 01/21/24 01/21/24 01/21/24 Range/Units 20:05 20:05 20:05 WBC 5.6 (3.8-10.6) k/uL RBC 4.61 (3.80-5.40) m/uL Hgb 13.3 (11.4-16.0) gm/dL Hct 42.5 (34.0-46.0) % MCV 92.3 (80.0-100.0) fL MCH 28.8 (25.0-35.0) pg MCHC 31.2 (31.0-37.0) g/dL RDW 13.7 (11.5-15.5) % Plt Count 256 (150-450) k/uL MPV 6.9 Neutrophils % 60 % Lymphocytes % 31 % Monocytes % 4 % Eosinophils % 2 % Basophils % 0 % Neutrophils # 3.4 (1.3-7.7) k/uL Lymphocytes # 1.7 (1.0-4.8) k/uL Monocytes # 0.3 (0-1.0) k/uL Eosinophils # 0.1 (0-0.7) k/uL Basophils # 0.0 (0-0.2) k/uL PT 10.7 (10.0-12.5) sec INR 1.0 (<1.2) APTT 19.0 L (22.0-30.0) sec Sodium 138 (137-145) mmol/L Potassium 4.5 (3.5-5.1) mmol/L Chloride 104 (98-107) mmol/L Carbon Dioxide 24 (22-30) mmol/L Anion Gap 10 mmol/L BUN 10 (7-17) mg/dL Creatinine 0.64 (0.52-1.04) mg/dL Est GFR (CKD-EPI)AfAm >90 (>60 ml/min/1.73 sqM) Est GFR (CKD-EPI)NonAf 89 (>60 ml/min/1.73 sqM) Glucose 91 (74-99) mg/dL Calcium 9.7 (8.4-10.2) mg/dL Total Bilirubin 0.8 (0.2-1.3) mg/dL AST 30 (14-36) U/L ALT 16 (4-34) U/L Alkaline Phosphatase 101 (38-126) U/L Total Protein 7.0 (6.3-8.2) g/dL Albumin 4.1 (3.5-5.0) g/dL Amylase 79 (30-110) U/L Lipase 61 (23-300) U/L Urine Color Urine Appearance (Clear) Urine pH (5.0-8.0) Ur Specific [place] (1.001-1.035) Urine Protein (Negative) Urine Glucose (UA) (Negative) Urine Ketones (Negative) Urine Blood (Negative) Urine Nitrite (Negative) Urine Bilirubin (Negative) Urine Urobilinogen (<2.0) mg/dL Ur Leukocyte Esterase (Negative) Influenza Type A (PCR) (Not Detectd) Influenza Type B (PCR) (Not Detectd) RSV (PCR) (Not Detectd) SARS-CoV-2 (PCR) (Not Detectd) 09/15/24 09/15/24 Range/Units 20:47 20:47 WBC (3.8-10.6) k/uL RBC (3.80-5.40) m/uL Hgb (11.4-16.0) gm/dL Hct (34.0-46.0) % MCV (80.0-100.0) fL MCH (25.0-35.0) pg MCHC (31.0-37.0) g/dL RDW (11.5-15.5) % Plt Count (150-450) k/uL MPV Neutrophils % % Lymphocytes % % Monocytes % % Eosinophils % % Basophils % % Neutrophils # (1.3-7.7) k/uL Lymphocytes # (1.0-4.8) k/uL Monocytes # (0-1.0) k/uL Eosinophils # (0-0.7) k/uL Basophils # (0-0.2) k/uL PT (10.0-12.5) sec INR (<1.2) APTT (22.0-30.0) sec Sodium (137-145) mmol/L Potassium (3.5-5.1) mmol/L Chloride (98-107) mmol/L Carbon Dioxide (22-30) mmol/L Anion Gap mmol/L BUN (7-17) mg/dL Creatinine (0.52-1.04) mg/dL Est GFR (CKD-EPI)AfAm (>60 ml/min/1.73 sqM) Est GFR (CKD-EPI)NonAf (>60 ml/min/1.73 sqM) Glucose (74-99) mg/dL Calcium (8.4-10.2) mg/dL Total Bilirubin (0.2-1.3) mg/dL AST (14-36) U/L ALT (4-34) U/L Alkaline Phosphatase (38-126) U/L Total Protein (6.3-8.2) g/dL Albumin (3.5-5.0) g/dL Amylase (30-110) U/L Lipase (23-300) U/L Urine Color Yellow Urine Appearance Clear (Clear) Urine pH 5.5 (5.0-8.0) Ur Specific [place] 1.030 (1.001-1.035) Urine Protein Trace H (Negative) Urine Glucose (UA) Negative (Negative) Urine Ketones Negative (Negative) Urine Blood Negative (Negative) Urine Nitrite Negative (Negative) Urine Bilirubin Negative (Negative) Urine Urobilinogen 2.0 (<2.0) mg/dL Ur Leukocyte Esterase Negative (Negative) Influenza Type A (PCR) Not Detected (Not Detectd) Influenza Type B (PCR) Not Detected (Not Detectd) RSV (PCR) Not Detected (Not Detectd) SARS-CoV-2 (PCR) Not Detected (Not Detectd) Disposition <Ashly Moreno - Last Filed: 01/21/24 18:14> Is patient prescribed a controlled substance at d/c from ED?: No Time of Disposition: 21:47 <Kathy Page - Last Filed: 01/22/24 19:10> Clinical Impression: Abdominal pain Disposition: HOME SELF-CARE Condition: Good Instructions (If sedation given, give patient instructions): Abdominal Pain (ED) Additional Instructions: Return to the emergency department any new or worsening symptoms. Recommend follow-up with primary care provider next week for further evaluation Referrals: Tiara Bonilla MD [Primary Care Provider] - 1-2 days
[2024-01-21 20:13] LABS: Basophils % (A) 0 %; Eosinophils # (A) 0.1 k/uL (0-0.7); Eosinophils % (A) 2 %; HCT 42.5 % (34.0-46.0); HGB 13.3 gm/dL (11.4-16.0); Lymphocytes # (A) 1.7 k/uL (1.0-4.8); Lymphocytes % (A) 31 %; MCH 28.8 pg (25.0-35.0); MCHC 31.2 g/dL (31.0-37.0); MCV 92.3 fL (80.0-100.0); Mean Platelet Volume 6.9; Monocytes # (A) 0.3 k/uL (0-1.0); Monocytes % (A) 4 %; Neutrophils # (A) 3.4 k/uL (1.3-7.7); Neutrophils % (A) 60 %; Platelet Count 256 k/uL (150-450); RBC 4.61 m/uL (3.80-5.40); RDW 13.7 % (11.5-15.5); WBC 5.6 k/uL (3.8-10.6)
[2024-01-21 20:27] LABS: Prothrombin Time 10.7 sec (10.0-12.5)
[2024-01-21 20:33] LABS: ALT 16 U/L (4-34); AST 30 U/L (14-36); African American GFR (CKD) >90 (>60 ml/min/1.73 sqM); Albumin 4.1 g/dL (3.5-5.0); Alkaline Phosphatase 101 U/L (38-126); Amylase 79 U/L (30-110); Anion Gap 10 mmol/L; Blood Urea Nitrogen 10 mg/dL (7-17); Calcium 9.7 mg/dL (8.4-10.2); Carbon Dioxide 24 mmol/L (22-30); Chloride 104 mmol/L (98-107); Glucose 91 mg/dL (74-99); Lipase 61 U/L (23-300); Non-African American GFR(CKD) 89 (>60 ml/min/1.73 sqM); Potassium 4.5 mmol/L (3.5-5.1); Sodium 138 mmol/L (137-145); Total Bilirubin 0.8 mg/dL (0.2-1.3)
[2024-01-21 21:07] LABS: Appearance,Urine Clear (Clear); Bilirubin,Urine Negative (Negative); Blood,Urine Negative (Negative); Color,Urine Yellow; Glucose,Urine (UA) Negative (Negative); Ketones,Urine Negative (Negative); Leukocyte Esterase,Urine Negative (Negative); Nitrite,Urine Negative (Negative); PH, Urine 5.5 (5.0-8.0); Protein,Urine Trace (Negative)
[2024-01-21 22:21] VITALS: BP 128/78; PULSE 83; RESP 18
== END 2024-01-21 22:21 | disposition home or self-care (01) ==
LOC: EC 17:43
CPT/HCPCS: 36415; 80053; 81003; 82150; 83690; 85025; 85610; 85730; 87636; 93005; 99284

== ENCOUNTER → 2024-11-19 | Outpatient (CLI) | payer MEDICARE ==
[2024-11-19 13:05] LABS: INR 1.0 (<1.2); Partial Thromboplastin Time 22.2 sec (22.0-30.0); Prothrombin Time 10.6 sec (10.0-12.5)
[2024-11-19 15:38] LABS: HCT 40.2 % (37.2-46.3); HGB 12.6 g/dL (12.0-15.0); MCH 28.9 pg (27.0-32.0); MCHC 31.3 g/dL (32.0-37.0); MCV 92.2 FL (80.0-97.0); NRBC Per 100 WBC 0 X 10*3/uL (0.00-0.01); Platelet Count 258 X 10*3/uL (140-440); RBC 4.36 X 10*6/uL (4.10-5.20); RDW 13.3 % (11.5-14.5); WBC 4.93 X 10*3/uL (4.50-10.00)
[2024-11-19 15:45] LABS: ALT 11 U/L (8-44); AST 20 U/L (13-35); Albumin 3.9 g/dL (3.8-4.9); Albumin/Globulin Ratio 1.70 Ratio (1.60-3.17); Alkaline Phosphatase 82 U/L (41-126); Anion Gap 9.40 mmol/L (4.00-12.00); BUN/Creat Ratio 12.29 Ratio (12.00-20.00); Blood Urea Nitrogen 8.6 mg/dL (9.0-27.0); Calcium 9.1 mg/dL (8.7-10.3); Carbon Dioxide 24.6 mmol/L (21.6-31.8); Chloride 110 mmol/L (96-109); Globulin 2.3 g/dL (1.6-3.3); Glucose 88 mg/dL (70-110); Potassium 5.0 mmol/L (3.5-5.5); Sodium 144 mmol/L (135-145); Total Protein 6.2 g/dL (6.2-8.2)
== END | disposition home or self-care (01) ==
LOC: LABPAT 11:02
PROVIDERS: ATTEND Orthopaedic Surgery
DX: Z01.818 Encounter for other preprocedural examination (principal); M17.11 Unilateral primary osteoarthritis, right knee; I51.89 Other ill-defined heart diseases; R94.31 Abnormal electrocardiogram [ECG] [EKG]; Z22.322 Carrier or suspected carrier of Methicillin resistant Staphylococcus aureus
CPT/HCPCS: 36415; 80053; 85027; 85610; 85730; 87070; 93005